=== PATIENT | male | born 1980 | race American Indian/Alaskan Native ===

== ENCOUNTER 2020-08-25 00:09 | Inpatient (IN) | payer SELFPAY ==
--- NOTE | 2020-08-25 00:44 | Event Note ---
ED Screening Note Date of service: 08/25/20 Time: 00:42 ED Screening Note: Patient complains of shortness of breath x2 to 3 weeks History of diabetes, colon cancer-currently on chemo Heart rate noted to be 140 This initial assessment/diagnostic orders/clinical plan/treatment(s) is/are subject to change based on patients health status, clinical progression and re- assessment by fellow clinical providers in the ED. Further treatment and workup at subsequent clinical providers discretion. Patient/guardian urged not to elope from the ED as their condition may be serious if not clinically assessed and managed. Initial orders include: Labs EKG Chest x-ray POC glucose
[2020-08-25] MEDS ORDERED: HYDROmorphone 1 MG/1 ML INJ IV ONE (01:18)
[2020-08-25] MEDS ORDERED: SODIUM CHLORIDE 0.9% 1000 ML 1,000 ML IV ONE (01:18)
--- NOTE | 2020-08-25 01:20 | Emergency Department Report ---
ED Shortness of Breath HPI - General Chief Complaint: Dyspnea/Respdistress Stated Complaint: SOB/FATIGUE Time Seen by Provider: 08/25/20 00:40 Source: patient Mode of arrival: Ambulatory Limitations: No Limitations - History of Present Illness Initial Comments: Patient is a 40-year-old male that presents emergency room with complaints of shortness of breath and fatigue x2 to 3 weeks. Patient states his symptoms are worsening. Patient also complains of dark stool. Patient states he has melena. Patient states he has chronic anemia. Patient states from time to time his blood count will drop. Patient states he is having generalized pain. Patient states he has myalgias. Patient denies chest pain. Patient denies fever and chills. Patient denies recent travel. Patient denies recent international travel. Patient denies exposure to the novel coronavirus. Patient denies sick contacts. Patient denies fever and chills. Patient denies cough. Patient denies coming in contact with anybody with symptoms of the novel coronavirus. -: Sudden, week(s) Severity: severe Pain Scale: 10 Quality: aching Consistency: constant Improves With: rest Worsens With: movement Treatments Prior to Arrival: none - Related Data Home Oxygen Therapy: No Previous Rx's Medication Instructions Recorded Last Taken Type Glimepiride [Amaryl] 1 mg PO QDDIAB #30 tablet 05/04/15 Unknown Rx Pantoprazole [Protonix] 40 mg PO BID #60 tablet 05/04/15 Unknown Rx Sucralfate [Carafate] 1 gm PO Q6HR #60 oral.liqd 05/04/15 Unknown Rx amLODIPine 2.5 mg PO QDAY #30 tablet 05/04/15 Unknown Rx carvediloL [Coreg] 6.25 mg PO BID #30 tablet 05/04/15 Unknown Rx Allergies Allergy/AdvReac Type Severity Reaction Status Date / Time Penicillins Allergy Unknown Verified 03/10/13 06:35 ED Review of Systems ROS: Stated complaint: SOB/FATIGUE Other details as noted in HPI Constitutional: malaise. denies: chills, fever Eyes: denies: eye pain, eye discharge, vision change ENT: denies: ear pain, throat pain Respiratory: shortness of breath. denies: cough, wheezing Cardiovascular: denies: chest pain, palpitations Endocrine: no symptoms reported Gastrointestinal: melena. denies: abdominal pain, nausea, vomiting, diarrhea Genitourinary: denies: urgency, dysuria Musculoskeletal: arthralgia, myalgia. denies: back pain, joint swelling Skin: denies: rash, lesions Neurological: denies: headache, weakness, paresthesias Psychiatric: denies: anxiety, depression Hematological/Lymphatic: denies: easy bleeding, easy bruising ED Past Medical Hx - Past Medical History Previous Medical History?: Yes Hx Hypertension: Yes Hx Congestive Heart Failure: No Hx Diabetes: Yes Hx Asthma: No Hx COPD: No Hx HIV: No Additional medical history: PUD, Colon cancer, Hidradenitis suppurativa - Surgical History Past Surgical History?: Yes Additional Surgical History: Colon resection - Family History Family history: no significant - Social History Smoking Status: Never Smoker Substance Use Type: Marijuana - Medications Home Medications: Home Medications Medication Instructions Recorded Confirmed Last Taken Type Glimepiride [Amaryl] 1 mg PO QDDIAB #30 tablet 05/04/15 Unknown Rx Pantoprazole [Protonix] 40 mg PO BID #60 tablet 05/04/15 Unknown Rx Sucralfate [Carafate] 1 gm PO Q6HR #60 oral.liqd 05/04/15 Unknown Rx amLODIPine 2.5 mg PO QDAY #30 tablet 05/04/15 Unknown Rx carvediloL [Coreg] 6.25 mg PO BID #30 tablet 05/04/15 Unknown Rx ED Physical Exam - General Limitations: No Limitations General appearance: alert, in no apparent distress - Head Head exam: Present: atraumatic, normocephalic - Eye Eye exam: Present: normal appearance - ENT ENT exam: Present: mucous membranes moist - Neck Neck exam: Present: normal inspection - Respiratory Respiratory exam: Present: normal lung sounds bilaterally. Absent: respiratory distress - Cardiovascular Cardiovascular Exam: Present: regular rate, normal rhythm. Absent: systolic murmur, diastolic murmur, rubs, gallop - GI/Abdominal GI/Abdominal exam: Present: soft, normal bowel sounds - Rectal Rectal exam: Present: deferred - Extremities Exam Extremities exam: Present: normal inspection - Back Exam Back exam: Present: normal inspection - Neurological Exam Neurological exam: Present: alert, oriented X3 - Psychiatric Psychiatric exam: Present: normal affect, normal mood - Skin Skin exam: Present: warm, dry, normal color, other (Bilateral axillary cellulitis noted.). Absent: rash ED Course Vital Signs 08/25/20 08/25/20 08/25/20 00:30 01:18 02:00 Temperature 98.1 F Pulse Rate 140 H 106 H Respiratory 18 20 16 Rate Blood Pressure 118/73 138/67 O2 Sat by Pulse 100 98 98 Oximetry 08/25/20 08/25/20 08/25/20 02:16 02:30 02:46 Temperature Pulse Rate 99 H 97 H 92 H Respiratory 19 21 18 Rate Blood Pressure 140/73 140/73 130/72 O2 Sat by Pulse 98 99 99 Oximetry 08/25/20 08/25/20 03:00 03:16 Temperature Pulse Rate 92 H 91 H Respiratory 18 15 Rate Blood Pressure 130/72 119/74 O2 Sat by Pulse 99 99 Oximetry - Reevaluation(s) Reevaluation #1: Patient states his pain is better. Patient's heart rate is better. I discussed all results with patient. I discussed plan of care with patient. Patient agrees with plan of care and admission. Patient to be admitted to the hospitalist service. 08/25/20 03:23 - Consultations Consultation #1: Hospitalist consulted for admission. Hospitalist to admit patient. 08/25/20 03:23 Consultation #2: GI consult placed 08/25/20 03:44 ED Medical Decision Making - Lab Data Result diagrams: 08/25/20 01:07 08/25/20 01:07 - EKG Data -: EKG Interpreted by Me EKG shows normal: sinus rhythm, axis, intervals, QRS complexes, ST-T waves Rate: tachycardia - Radiology Data Radiology results: report reviewed, image reviewed interpreted by me: Chest x-ray: No pneumonia, no pneumothorax, no foreign body, no osseous findings, no acute findings - Medical Decision Making Patient is a 40-year-old male who presents emergency room with complaints of shortness of breath and fatigue and generalized body aches x2 to 3 weeks. Patient symptoms are worsening. Patient also complained of melena. Patient states he has history of anemia. Patient found to be tachycardic at 120 and patient was given normal saline and his heart rate improved. Patient also given early antibiotics. Patient had labs done which were essentially unremarkable except for anemia, elevated platelet count, elevated WBC. Patient source of infection is his axillary cellulitis and suppurative hidradenitis. Patient has a foul-smelling discharge from the axillary region. Patient given Dilaudid for pain he responded well. Patient responded well to treatment. GI consulted. P atient admitted to the hospitalist service for further evaluation and treatment. - Differential Diagnosis Sepsis, Sirs, tachycardia, SLB, fatigue, melena, anemia, cellulitis Critical Care Time: Yes Critical care time in (mins) excluding proc time.: 35 Critical care attestation.: If time is entered above; I have spent that time in minutes in the direct care of this critically ill patient, excluding procedure time. Critical Care Time: 35 minutes ED Disposition Clinical Impression: Hidradenitis suppurativa, Symptomatic anemia, Melena, Tachycardia Elevated WBC count Qualifiers: Leukocytosis type: unspecified Qualified Code(s): D72.829 - Elevated white blood cell count, unspecified Cellulitis of axilla Qualifiers: Laterality: unspecified laterality Qualified Code(s): L03.119 - Cellulitis of unspecified part of limb Anemia Qualifiers: Anemia type: unspecified type Qualified Code(s): D64.9 - Anemia, unspecified Sepsis Qualifiers: Sepsis type: sepsis due to unspecified organism Sepsis acute organ dysfunction status: without acute organ dysfunction Qualified Code(s): A41.9 - Sepsis, unspecified organism Disposition: 09 OP ADMIT IP TO THIS HOSP Is pt being admited?: Yes Does the pt Need Aspirin: No Condition: Critical Time of Disposition: 03:23
[2020-08-25 01:46] LABS: Hematocrit 29.7 % (35.5-45.6); Mean Corpuscular HGB Conc 30 % (32-34); Platelet Count 717 K/mm3 (140-440); Red Blood Count 4.51 M/mm3 (3.65-5.03); Red Cell Distribution Width 18.5 % (13.2-15.2)
[2020-08-25 01:51] LABS: Mean Corpuscular Volume 66 fl (84-94)
[2020-08-25] MEDS ORDERED: CLINDAMYCIN 600 MG/50 mL 600 MG/50 ML BAG IV ONE (01:55)
[2020-08-25 02:06] LABS: BUN/Creatinine Ratio 10; Blood Urea Nitrogen 11 mg/dL (9-20); Calcium 8.2 mg/dL (8.4-10.2); Hemolysis Index 0
[2020-08-25 03:16] LABS: Band Neutrophils # (Manual) 0.2 K/mm3; Total Cells Counted 100
[2020-08-25 03:17] LABS: Hypochromasia 2+
[2020-08-25 03:18] LABS: Platelet Estimate Consistent w Auto
[2020-08-25] MEDS ORDERED: SODIUM CHLORIDE 0.9% 1000 ML IV SOLN IV ONE (03:25)
[2020-08-25] MEDS ORDERED: PANTOPRAZOLE 80 MG in SODIUM CHLORIDE 0.9% 100 ML IV SCH (04:00)
[2020-08-25] MEDS ORDERED: ACETAMINOPHEN 325 MG TAB PO PRN (04:09)
[2020-08-25] MEDS ORDERED: ONDANSETRON 4 MG/2 ML INJ IV PRN (04:09)
[2020-08-25] MEDS ORDERED: MAGNESIUM HYDROXIDE (MOM) ORAL LIQD UDC PO PRN (04:09)
--- NOTE | 2020-08-25 04:22 | History and Physical Report ---
History of Present Illness Date of examination: 08/25/20 Date of admission: 08/25/20 03:44 Chief complaint: Shortness of breath Fatigue History of present illness: 40-year-old male with known history of hypertension, history of diabetes mellitus, colon cancer with colon resection in the past, PUD presenting in the emergency room today complaining of shortness of breath and fatigue which has been ongoing for about 2 to 3 weeks. He has also had some dark stool and indicates that he has had anemia from time to time. Denies any fever or chills, no chest pain or shortness of breath, no fever or chills, no nausea vomiting and no diarrhea. He however has been having generalized body aches and pain. Patient denies any sick contacts and no recent travel. Denies any contact with anyone with COVID-19. Upon arrival in the emergency room he was tachycardic. Evaluation in the emergency room today reveals a leukocytosis of 18., Chest x-ray was unremarkable. Patient is being admitted with sepsis and anemia. Past History Past Medical History: diabetes, hypertension, other (History of colon cancer, peptic ulcer disease) Past Surgical History: Other (Colon resection) Social history: no significant social history Family history: no significant family history Medications and Allergies Allergies Allergy/AdvReac Type Severity Reaction Status Date / Time Penicillins Allergy Unknown Verified 03/10/13 06:35 Home Medications Medication Instructions Recorded Confirmed Last Taken Type Glimepiride [Amaryl] 1 mg PO QDDIAB #30 tablet 05/04/15 Unknown Rx Pantoprazole [Protonix] 40 mg PO BID #60 tablet 05/04/15 Unknown Rx Sucralfate [Carafate] 1 gm PO Q6HR #60 oral.liqd 05/04/15 Unknown Rx amLODIPine 2.5 mg PO QDAY #30 tablet 05/04/15 Unknown Rx carvediloL [Coreg] 6.25 mg PO BID #30 tablet 05/04/15 Unknown Rx Active Meds: Active Medications Acetaminophen (Acetaminophen 325 Mg Tab) 650 mg PO Q4H PRN PRN Reason: Pain MILD(1-3)/Fever >100.5/SCOTT Amlodipine Besylate (Amlodipine 5 Mg Tab) 2.5 mg PO QDAY ASTRID Carvedilol (Carvedilol 6.25 Mg Tab) 6.25 mg PO BID@0800,1700 [facility] Pantoprazole Sodium 80 mg/ (Sodium Chloride) 100 mls @ 10 mls/hr IV DIRECT ASTRID Sodium Chloride (Nacl 0.9% 1000 Ml) 1,000 mls @ 125 mls/hr IV DIRECT ASTRID Clindamycin HCl (Cleocin 600 Mg/50 Ml) 600 mg in 50 mls @ 100 mls/hr IV Q8H ASTRID; Protocol Magnesium Hydroxide (Magnesium Hydroxide (Mom) Oral Liqd Udc) 30 ml PO Q4H PRN PRN Reason: Constipation Morphine Sulfate (Morphine 2 Mg/1 Ml Inj) 2 mg IV Q4H PRN PRN Reason: Pain, Moderate (4-6) Ondansetron HCl (Ondansetron 4 Mg/2 Ml Inj) 4 mg IV Q8H PRN PRN Reason: Nausea And Vomiting Sodium Chloride (Sodium Chloride 0.9% 10 Ml Flush Syringe) 10 ml IV BID ASTRID Sodium Chloride (Sodium Chloride 0.9% 10 Ml Flush Syringe) 10 ml IV PRN PRN PRN Reason: LINE FLUSH Sucralfate (Sucralfate 1 Gm/10 Ml Oral Liqd) 1 gm PO Q6HR [facility] Review of Systems Constitutional: fatigue, weakness, no fever, no chills Ears, nose, mouth and throat: no nasal congestion, no sore throat Cardiovascular: no chest pain, no palpitations Respiratory: no cough, no shortness of breath Gastrointestinal: melena, no abdominal pain, no nausea, no vomiting, no diarrhea Genitourinary Male: no dysuria, no hematuria, no nocturia Musculoskeletal: no neck pain, no low back pain Integumentary: no rash, no pruritis Neurological: no headaches, no confusion Psychiatric: no anxiety, no depression Exam - Constitutional Vitals: Temp Pulse Resp BP Pulse Ox 98.1 F 91 H 15 119/74 99 08/25/20 00:30 08/25/20 03:16 08/25/20 03:16 08/25/20 03:16 08/25/20 03:16 General appearance: Present: no acute distress, well-nourished - EENT Eyes: Present: PERRL, EOM intact. Absent: scleral icterus ENT: hearing intact, clear oral mucosa, dentition normal - Neck Neck: Present: supple, normal ROM - Respiratory Respiratory effort: normal Respiratory: bilateral: CTA - Cardiovascular Rhythm: regular Heart Sounds: Present: S1 & S2. Absent: gallop, systolic murmur, diastolic murmur, rub, click - Extremities Extremities: no ischemia, pulses intact, pulses symmetrical, No edema, normal temperature, normal color, Full ROM Peripheral Pulses: within normal limits - Abdominal General gastrointestinal: Present: soft, non-tender, non-distended, normal bowel sounds. Absent: mass - Integumentary Integumentary: Present: clear, warm, dry, pale - Musculoskeletal Musculoskeletal: strength equal bilaterally - Psychiatric Psychiatric: appropriate mood/affect, intact judgment & insight, memory intact, cooperative - Neurologic Neurologic: CNII-XII intact, no focal deficits, moves all extremities - Additional findings Additional findings: Open wounds in both axilla. HEART Score - HEART Score Troponin: Troponin T < 0.010 ng/mL (0.00-0.029) 08/25/20 01:07 Results - Labs CBC & Chem 7: 08/25/20 01:07 08/25/20 01:07 Labs: Abnormal lab results 08/25/20 08/25/20 Range/Units 01:07 01:07 WBC 18.0 H (4.5-11.0) K/mm3 Hgb 9.0 L (11.8-15.2) gm/dl Hct 29.7 L (35.5-45.6) % MCV 66 L (84-94) fl MCH 20 L (28-32) pg MCHC 30 L (32-34) % RDW 18.5 H (13.2-15.2) % Plt Count 717 H (140-440) K/mm3 Seg Neuts % (Manual) 89.0 H (40.0-70.0) % Lymphocytes % (Manual) 5.0 L (13.4-35.0) % Seg Neutrophils # Man 16.0 H (1.8-7.7) K/mm3 Lymphocytes # (Manual) 0.9 L (1.2-5.4) K/mm3 Monocytes # (Manual) 0.9 H (0.0-0.8) K/mm3 Sodium 127 L (137-145) mmol/L Chloride 90.3 L (98-107) mmol/L Glucose 155 H (75-100) mg/dL Calcium 8.2 L (8.4-10.2) mg/dL Assessment and Plan - Patient Problems (1) Cellulitis of axilla Current Visit: Yes Status: Acute Qualifiers: Laterality: unspecified laterality Qualified Code(s): L03.119 - Cellulitis of unspecified part of limb Plan to address problem: Patient placed on empiric IV antibiotics. We await culture results. (2) Sepsis Current Visit: Yes Status: Acute Qualifiers: Sepsis type: sepsis due to unspecified organism Sepsis acute organ dysfunction status: without acute organ dysfunction Qualified Code(s): A41.9 - Sepsis, unspecified organism Plan to address problem: We will continue on empiric IV antibiotics and IV fluid. (3) Symptomatic anemia Current Visit: Yes Status: Acute Plan to address problem: Probably chronic. Patient will transfuse with packed red blood cells as needed. (4) DVT prophylaxis Current Visit: Yes Status: Acute Plan to address problem: Patient placed on sequential compression device. (5) Full code status Current Visit: Yes Status: Acute Plan to address problem: Patient is full code.
[2020-08-25] MEDS: MORPHINE 2 MG/1 ML INJ IV PRN ×3 (05:30→21:27)
[2020-08-25] MEDS: SODIUM CHLORIDE 0.9% 1000 ML 1,000 ML IV SCH ×3 (05:31→20:24)
[2020-08-25] MEDS: SUCRALFATE 1 GM/10 ML ORAL LIQD PO SCH ×3 (07:59→18:56)
--- NOTE | 2020-08-25 10:06 | Gastroenterology Consultation ---
History of Present Illness - Reason for Consult Consult date: 08/25/20 dark stools, anemia Requesting physician: VINCENT STILL III - History of Present Illness The patient is a 40 yo aam who presents with progressive weakness/fatigue for the past 2-3 weeks. Patient reports he gets his medical care at [facility]. Reports being diagnosed with stage III colon cancer last year (colonoscopy prior to diagnosis for weight loss per pt; all history obtained from pt), s/p partial colon resection and chemotherapy last year. He has had hydradenitis suppuritiva involving bilateral axillaries under arm, groin and buttocks. GI consulted for anemia/possible melena. States he has had dark brown stools but no overt bleeding (no black stools, hematochezia, etc). Denies abd pain. occasional issues with constipation. reports significant drainage from buttocks hydranitis. Past History Past Medical History: diabetes, hypertension, other (History of colon cancer, peptic ulcer disease) Past Surgical History: Other (Colon resection) Social history: no significant social history Family history: no significant family history Medications and Allergies Allergies Allergy/AdvReac Type Severity Reaction Status Date / Time Penicillins Allergy Unknown Verified 03/10/13 06:35 Home Medications Medication Instructions Recorded Confirmed Last Taken Type Glimepiride [Amaryl] 1 mg PO QDDIAB #30 tablet 05/04/15 Unknown Rx Pantoprazole [Protonix] 40 mg PO BID #60 tablet 05/04/15 Unknown Rx Sucralfate [Carafate] 1 gm PO Q6HR #60 oral.liqd 05/04/15 Unknown Rx amLODIPine 2.5 mg PO QDAY #30 tablet 05/04/15 Unknown Rx carvediloL [Coreg] 6.25 mg PO BID #30 tablet 05/04/15 Unknown Rx Active Meds: Active Medications Acetaminophen (Acetaminophen 325 Mg Tab) 650 mg PO Q4H PRN PRN Reason: Pain MILD(1-3)/Fever >100.5/SCOTT Amlodipine Besylate (Amlodipine 5 Mg Tab) 2.5 mg PO QDAY ASTRID Carvedilol (Carvedilol 6.25 Mg Tab) 6.25 mg PO BID@0800,1700 [facility] Pantoprazole Sodium 80 mg/ (Sodium Chloride) 100 mls @ 10 mls/hr IV DIRECT ASTRID Last Admin: 08/25/20 05:31 Dose: 8 mg/hr, 10 mls/hr Documented by: Sodium Chloride (Nacl 0.9% 1000 Ml) 1,000 mls @ 125 mls/hr IV DIRECT ASTRID Last Admin: 08/25/20 05:31 Dose: 125 mls/hr Documented by: Clindamycin HCl (Cleocin 600 Mg/50 Ml) 600 mg in 50 mls @ 100 mls/hr IV Q8H ASTRID; Protocol Magnesium Hydroxide (Magnesium Hydroxide (Mom) Oral Liqd Udc) 30 ml PO Q4H PRN PRN Reason: Constipation Morphine Sulfate (Morphine 2 Mg/1 Ml Inj) 2 mg IV Q4H PRN PRN Reason: Pain, Moderate (4-6) Last Admin: 08/25/20 05:30 Dose: 2 mg Documented by: Ondansetron HCl (Ondansetron 4 Mg/2 Ml Inj) 4 mg IV Q8H PRN PRN Reason: Nausea And Vomiting Sodium Chloride (Sodium Chloride 0.9% 10 Ml Flush Syringe) 10 ml IV BID ASTRID Sodium Chloride (Sodium Chloride 0.9% 10 Ml Flush Syringe) 10 ml IV PRN PRN PRN Reason: LINE FLUSH Sucralfate (Sucralfate 1 Gm/10 Ml Oral Liqd) 1 gm PO Q6HR ASTRID Last Admin: 08/25/20 07:59 Dose: Not Given Documented by: Reviewed/updated patient's home and current medications Review of Systems - Review of Systems All systems: negative (per HPI) Exam - Constitutional Vital Signs: Temp Pulse Resp BP Pulse Ox 98.4 F 87 16 119/73 100 08/25/20 08:44 08/25/20 08:44 08/25/20 08:44 08/25/20 08:44 08/25/20 08:44 General appearance: no acute distress - Respiratory Respiratory effort: normal Respiratory: bilateral: CTA - Cardiovascular Rhythm: regular Heart Sounds: Present: S1 & S2 - Gastrointestinal General gastrointestinal: Present: soft, non-tender, non-distended Rectal Exam: other (large buttocks swelling with drainage, brown stool) - Integumentary Integumentary: Present: clear, warm - Neurologic Neurological: alert and oriented x3 - Psychiatric Psychiatric: appropriate mood/affect - Labs CBC & Chem 7: 08/25/20 01:07 08/25/20 01:07 Lab Results: Laboratory Results - last 24 hr 08/25/20 08/25/20 08/25/20 01:07 01:07 01:07 WBC 18.0 H RBC 4.51 Hgb 9.0 L Hct 29.7 L MCV 66 L MCH 20 L MCHC 30 L RDW 18.5 H Plt Count 717 H Add Manual Diff Complete Total Counted 100 Seg Neuts % (Manual) 89.0 H Band Neutrophils % 1.0 Lymphocytes % (Manual) 5.0 L Monocytes % (Manual) 5.0 Nucleated RBC % Not Reportable Seg Neutrophils # Man 16.0 H Band Neutrophils # 0.2 Lymphocytes # (Manual) 0.9 L Abs React Lymphs (Man) 0.0 Monocytes # (Manual) 0.9 H Eosinophils # (Manual) 0.0 Basophils # (Manual) 0.0 Metamyelocytes # 0.0 Myelocytes # 0.0 Promyelocytes # 0.0 Blast Cells # 0.0 WBC Morphology Not Reportable Hypersegmented Neuts Not Reportable Hyposegmented Neuts Not Reportable Hypogranular Neuts Not Reportable Smudge Cells Not Reportable Toxic Granulation Not Reportable Toxic Vacuolation Not Reportable Dohle Bodies Not Reportable Pelger-Huet Anomaly Not Reportable Janet Rods Not Reportable Platelet Estimate Consistent w auto Clumped Platelets Not Reportable Plt Clumps, EDTA Not Reportable Large Platelets Not Reportable Giant Platelets Not Reportable Platelet Satelliting Not Reportable Plt Morphology Comment Not Reportable RBC Morphology Not Reportable Dimorphic RBCs Not Reportable Polychromasia Not Reportable Hypochromasia 2+ Poikilocytosis Not Reportable Anisocytosis Not Reportable Microcytosis 1+ Macrocytosis Not Reportable Spherocytes Not Reportable Pappenheimer Bodies Not Reportable Sickle Cells Not Reportable Target Cells Not Reportable Tear Drop Cells Not Reportable Ovalocytes Not Reportable Helmet Cells Not Reportable Perez-[place] Bodies Not Reportable Hilliard Rings Not Reportable Maik Cells Not Reportable Bite Cells Not Reportable Crenated Cell Not Reportable Elliptocytes Not Reportable Acanthocytes (Spur) Not Reportable Rouleaux Not Reportable Hemoglobin C Crystals Not Reportable Schistocytes Not Reportable Malaria parasites Not Reportable Rishi Bodies Not Reportable Hem Pathologist Commnt No Sodium 127 L Potassium 4.7 Chloride 90.3 L Carbon Dioxide 28 Anion Gap 13 BUN 11 Creatinine 1.1 Estimated GFR > 60 BUN/Creatinine Ratio 10 Glucose 155 H Lactic Acid Calcium 8.2 L Troponin T < 0.010 NT-Pro-B Natriuret Pep 218.3 08/25/20 01:38 WBC RBC Hgb Hct MCV MCH MCHC RDW Plt Count Add Manual Diff Total Counted Seg Neuts % (Manual) Band Neutrophils % Lymphocytes % (Manual) Monocytes % (Manual) Nucleated RBC % Seg Neutrophils # Man Band Neutrophils # Lymphocytes # (Manual) Abs React Lymphs (Man) Monocytes # (Manual) Eosinophils # (Manual) Basophils # (Manual) Metamyelocytes # Myelocytes # Promyelocytes # Blast Cells # WBC Morphology Hypersegmented Neuts Hyposegmented Neuts Hypogranular Neuts Smudge Cells Toxic Granulation Toxic Vacuolation Dohle Bodies Pelger-Huet Anomaly Janet Rods Platelet Estimate Clumped Platelets Plt Clumps, EDTA Large Platelets Giant Platelets Platelet Satelliting Plt Morphology Comment RBC Morphology Dimorphic RBCs Polychromasia Hypochromasia Poikilocytosis Anisocytosis Microcytosis Macrocytosis Spherocytes Pappenheimer Bodies Sickle Cells Target Cells Tear Drop Cells Ovalocytes Helmet Cells Perez-[place] Bodies Hilliard Rings [place] Cells Bite Cells Crenated Cell Elliptocytes Acanthocytes (Spur) Rouleaux Hemoglobin C Crystals Schistocytes Malaria parasites Rishi Bodies Hem Pathologist Commnt Sodium Potassium Chloride Carbon Dioxide Anion Gap BUN Creatinine Estimated GFR BUN/Creatinine Ratio Glucose Lactic Acid 1.90 Calcium Troponin T NT-Pro-B Natriuret Pep Assessment and Plan 1. Chronic anemia - no overt gi bleeding, brown stool on rectal exam. reports h/o colon cancer last year s/p partial colon resection and chemotherapy at [facility]. no plans for endoscopy at present time unless signs of overt bleeding. can switch to PPI BID dosing and monitor labs. 2. Hidranitis suppurrativa - further management per primary; appears to have significant buttocks involvement with continuos drainage which is blood tinged. 3. history of colon cancer - will need f/u with primary GI as outpatient at [facility] for surveillance -consider ct scan of abd/pelvis
--- NOTE | 2020-08-25 11:35 | Progress Note ---
Assessment and Plan Assessment and plan: #Sepsis multiple hidradenitis suppurativa with drainage involving the axillary and buttock/groin regions On empirical clindamycin. Culturelle Awaiting blood culture. Send wound culture results Wound care consulted ID evaluation Continue IV hydration #Shortness of breath on admission Chest x-ray showed no clear infiltrates. Awaiting official reading.? COVID-19 test #Chronic anemia Hemoglobin stable Trend hemoglobin for now GI evaluation #History of colon cancer Status post colon resection and chemo therapy Needs to follow-up with GI doctor at [facility] evaluation #DVT prophylaxis-SCDs/encourage ambulation for now History Interval history: Patient seen and examined at bedside this morning On IV antibiotics for suppurative hidradenitis GI consulted for possible colonoscopy Hospitalist Physical - Physical exam Narrative exam: VITAL SIGNS: Reviewed. GENERAL: Awake HEAD: No signs of head trauma. EYES: Pupils are equal. Extraocular motions intact. MOUTH: Oropharynx is normal. NECK: No adenopathy, no JVD. CHEST: Chest with diminished breath sounds bilaterally. No wheezes, rales, or rhonchi. CARDIAC: normal S1 and S2, without murmurs, gallops, or rubs. ABDOMEN: Soft, non tender and non distended. No rebound or guarding, and no masses palpated. Bowel Sounds normal. MUSCULOSKELETAL: Multiple hidradenitis suppurativa with discharge in bilateral a xilla Genitourinary: Hidradenitis of the groin area NEUROLOGIC EXAM: Alert and oriented x3. No focal neurologic deficits SKIN: No obvious lesions - Constitutional Vitals: Temp Pulse Resp BP Pulse Ox 98.4 F 87 16 119/73 100 08/25/20 08:44 08/25/20 08:44 08/25/20 08:44 08/25/20 08:44 08/25/20 08:44 HEART Score - HEART Score Troponin: Troponin T < 0.010 ng/mL (0.00-0.029) 08/25/20 01:07 Results - Labs CBC & Chem 7: 08/25/20 01:07 08/25/20 01:07 Labs: Laboratory Last Values WBC 18.0 K/mm3 (4.5-11.0) H 08/25/20 01:07 RBC 4.51 M/mm3 (3.65-5.03) 08/25/20 01:07 Hgb 9.0 gm/dl (11.8-15.2) L 08/25/20 01:07 Hct 29.7 % (35.5-45.6) L 08/25/20 01:07 MCV 66 fl (84-94) L 08/25/20 01:07 MCH 20 pg (28-32) L 08/25/20 01:07 MCHC 30 % (32-34) L 08/25/20 01:07 RDW 18.5 % (13.2-15.2) H 08/25/20 01:07 Plt Count 717 K/mm3 (140-440) H 08/25/20 01:07 Add Manual Diff Complete 08/25/20 01:07 Total Counted 100 08/25/20 01:07 Seg Neuts % (Manual) 89.0 % (40.0-70.0) H 08/25/20 01:07 Band Neutrophils % 1.0 % 08/25/20 01:07 Lymphocytes % (Manual) 5.0 % (13.4-35.0) L 08/25/20 01:07 Monocytes % (Manual) 5.0 % (0.0-7.3) 08/25/20 01:07 Nucleated RBC % Not Reportable 08/25/20 01:07 Seg Neutrophils # Man 16.0 K/mm3 (1.8-7.7) H 08/25/20 01:07 Band Neutrophils # 0.2 K/mm3 08/25/20 01:07 Lymphocytes # (Manual) 0.9 K/mm3 (1.2-5.4) L 08/25/20 01:07 Abs React Lymphs (Man) 0.0 K/mm3 08/25/20 01:07 Monocytes # (Manual) 0.9 K/mm3 (0.0-0.8) H 08/25/20 01:07 Eosinophils # (Manual) 0.0 K/mm3 (0.0-0.4) 08/25/20 01:07 Basophils # (Manual) 0.0 K/mm3 (0.0-0.1) 08/25/20 01:07 Metamyelocytes # 0.0 K/mm3 08/25/20 01:07 Myelocytes # 0.0 K/mm3 08/25/20 01:07 Promyelocytes # 0.0 K/mm3 08/25/20 01:07 Blast Cells # 0.0 K/mm3 08/25/20 01:07 WBC Morphology Not Reportable 08/25/20 01:07 Hypersegmented Neuts Not Reportable 08/25/20 01:07 Hyposegmented Neuts Not Reportable 08/25/20 01:07 Hypogranular Neuts Not Reportable 08/25/20 01:07 Smudge Cells Not Reportable 08/25/20 01:07 Toxic Granulation Not Reportable 08/25/20 01:07 Toxic Vacuolation Not Reportable 08/25/20 01:07 Dohle Bodies Not Reportable 08/25/20 01:07 Pelger-Huet Anomaly Not Reportable 08/25/20 01:07 Janet Rods Not Reportable 08/25/20 01:07 Platelet Estimate Consistent w auto 08/25/20 01:07 Clumped Platelets Not Reportable 08/25/20 01:07 Plt Clumps, EDTA Not Reportable 08/25/20 01:07 Large Platelets Not Reportable 08/25/20 01:07 Giant Platelets Not Reportable 08/25/20 01:07 Platelet Satelliting Not Reportable 08/25/20 01:07 Plt Morphology Comment Not Reportable 08/25/20 01:07 RBC Morphology Not Reportable 08/25/20 01:07 Dimorphic RBCs Not Reportable 08/25/20 01:07 Polychromasia Not Reportable 08/25/20 01:07 Hypochromasia 2+ 08/25/20 01:07 Poikilocytosis Not Reportable 08/25/20 01:07 Anisocytosis Not Reportable 08/25/20 01:07 Microcytosis 1+ 08/25/20 01:07 Macrocytosis Not Reportable 08/25/20 01:07 Spherocytes Not Reportable 08/25/20 01:07 Pappenheimer Bodies Not Reportable 08/25/20 01:07 Sickle Cells Not Reportable 08/25/20 01:07 Target Cells Not Reportable 08/25/20 01:07 Tear Drop Cells Not Reportable 08/25/20 01:07 Ovalocytes Not Reportable 08/25/20 01:07 Helmet Cells Not Reportable 08/25/20 01:07 Perez-[place] Bodies Not Reportable 08/25/20 01:07 [place] Rings Not Reportable 08/25/20 01:07 [place] Cells Not Reportable 08/25/20 01:07 Bite Cells Not Reportable 08/25/20 01:07 Crenated Cell Not Reportable 08/25/20 01:07 Elliptocytes Not Reportable 08/25/20 01:07 Acanthocytes (Spur) Not Reportable 08/25/20 01:07 Rouleaux Not Reportable 08/25/20 01:07 Hemoglobin C Crystals Not Reportable 08/25/20 01:07 Schistocytes Not Reportable 08/25/20 01:07 Malaria parasites Not Reportable 08/25/20 01:07 Rishi Bodies Not Reportable 08/25/20 01:07 Hem Pathologist Commnt No 08/25/20 01:07 Sodium 127 mmol/L (137-145) L 08/25/20 01:07 Potassium 4.7 mmol/L (3.6-5.0) 08/25/20 01:07 Chloride 90.3 mmol/L (98-107) L 08/25/20 01:07 Carbon Dioxide 28 mmol/L (22-30) 08/25/20 01:07 Anion Gap 13 mmol/L 08/25/20 01:07 BUN 11 mg/dL (9-20) 08/25/20 01:07 Creatinine 1.1 mg/dL (0.8-1.3) 08/25/20 01:07 Estimated GFR > 60 ml/min 08/25/20 01:07 BUN/Creatinine Ratio 10 % 08/25/20 01:07 Glucose 155 mg/dL (75-100) H 08/25/20 01:07 Lactic Acid 1.90 mmol/L (0.7-2.0) 08/25/20 01:38 Calcium 8.2 mg/dL (8.4-10.2) L 08/25/20 01:07 Troponin T < 0.010 ng/mL (0.00-0.029) 08/25/20 01:07 NT-Pro-B Natriuret Pep 218.3 pg/mL (0-450) 08/25/20 01:07 Active Medications - Current Medications Current Medications: Generic Name Dose Route Start Last Admin Trade Name Freq PRN Reason Stop Dose Admin Acetaminophen 650 mg 08/25/20 04:09 Acetaminophen 325 Mg Tab PO Q4H PRN Pain MILD(1-3)/Fever >100.5/SCOTT Amlodipine Besylate 2.5 mg 08/25/20 10:00 Amlodipine 5 Mg Tab PO QDAY [facility] Carvedilol 6.25 mg 08/25/20 08:00 Carvedilol 6.25 Mg Tab PO BID@0800,1700 [facility] Sodium Chloride 1,000 mls @ 125 mls/hr 08/25/20 04:15 08/25/20 05:31 Nacl 0.9% 1000 Ml IV 125 mls/hr DIRECT [facility] Administration Clindamycin HCl 600 mg in 50 mls @ 100 mls/hr 08/25/20 10:00 Cleocin 600 Mg/50 Ml IV Q8H [facility] Protocol Lactobacillus Rhamnosus 1 each 08/25/20 22:00 Lactobacillus Rhamnosus Gg 1 Each Cap PO BID [facility] Magnesium Hydroxide 30 ml 08/25/20 04:09 Magnesium Hydroxide (Mom) Oral Liqd Udc PO Q4H PRN Constipation Morphine Sulfate 2 mg 08/25/20 04:09 08/25/20 05:30 Morphine 2 Mg/1 Ml Inj IV 2 mg Q4H PRN Administration Pain, Moderate (4-6) Ondansetron HCl 4 mg 08/25/20 04:09 Ondansetron 4 Mg/2 Ml Inj IV Q8H PRN Nausea And Vomiting Pantoprazole Sodium 40 mg 08/25/20 16:30 Pantoprazole 40 Mg Tab PO BIDAC [facility] Sodium Chloride 10 ml 08/25/20 10:00 Sodium Chloride 0.9% 10 Ml Flush Syringe IV BID [facility] Sodium Chloride 10 ml 08/25/20 04:09 Sodium Chloride 0.9% 10 Ml Flush Syringe IV PRN PRN LINE FLUSH Sucralfate 1 gm 08/25/20 06:00 08/25/20 07:59 Sucralfate 1 Gm/10 Ml Oral Liqd PO Not Given Q6HR [facility]
[2020-08-25] MEDS: amLODIPine 5 MG TAB PO SCH (13:59)
[2020-08-25] MEDS: CLINDAMYCIN 600 MG/50 mL 600 MG/50 ML BAG IV SCH ×2 (14:01→19:00)
--- NOTE | 2020-08-25 14:04 | Cat Scan Report ---
CT CHEST WITHOUT CONTRAST INDICATION / CLINICAL INFORMATION: Pneumonia. TECHNIQUE: Axial CT images were obtained through the chest without contrast. Sagittal and coronal reformatted im ages. All CT scans at this location are performed using CT dose reduction for ALARA by means of autom ated exposure control. COMPARISON: None available. FINDINGS: HEART: No significant abnormality. THORACIC AORTA: No significant abnormality. MEDIASTINUM and TROY: No significant abnormality. Right [id number] terminates in the superior righ t atrium. LUNGS: No acute air space or interstitial disease. No suspicious pulmonary lesion. PLEURA: No significant pleural effusion. No pneumothorax. SKELETAL SYSTEM: No significant abnormality. IMPRESSION: No significant abnormality. No evidence for pneumonia. CT ABDOMEN AND PELVIS WITHOUT CONTRAST HISTORY: History of colon cancer COMPARISON: CT abdomen pelvis with contrast 07/29/2018 TECHNIQUE: Axial CT images were obtained through the abdomen and pelvis without IV contrast. Sagittal and coronal reformatted images. All CT scans at this location are performed using CT dose reduction for ALARA by means of automated exposure control. FINDINGS: CT ABDOMEN: Liver: The liver remains normal size and contour. Ill-defined decreased attenuation is identified in the liver parenchyma surrounding the gallbladder fossa. There is also an ill-defined 1.6 cm hypodensi ty high in the right hepatic lobe on axial image 40, series 2. These findings are new since the brigette rison exam. Biliary: Large peripherally calcified gall stone in the fundus of the gallbladder measures 2.4 cm. Mi ld diffuse gallbladder wall thickening is suspected. No surrounding inflammation. The common bile do t appears normal caliber. Spleen: No significant abnormality. Unenlarged. Pancreas: No significant abnormality. Adrenals: No significant abnormality. Kidneys: No significant abnormality. Lymphatics: No lymphadenopathy. Vasculature: No significant abnormality. Bowel/Peritoneum: No significant abnormality. No free air. No free fluid. Surgical suture line in the distal sigmoid colon is noted without evidence of local recurrence. Normal appendix. CT PELVIS: : The bladder, distal ureters and prostate gland are unremarkable. Osseous Structures: Stable mild thoracolumbar spondylosis. No suspicious bony lesion. Additional Findings: Nonspecific skin thickening over the medial buttocks is again seen. There is tra ce gas in these areas which may represent small fistulous tracts. No discrete abscess is seen. IMPRESSION: The liver has an abnormal appearance on today's examination particularly surrounding the gallbladder fossa. There is also an ill-defined 1.6 cm right hepatic lobe lesion. These appear to be new since th e previous CT with contrast. Although this does not have the typical appearance of metastatic disease cannot be excluded. Recommend further evaluation of the liver with CT or MRI with IV contrast. Cholelithiasis. Soft tissue findings in the medial buttocks as described suspicious for small fistulous tracts. Signer Name: Diogenes Massey Jr, MD Signed: 08/25/2020 2:00 PM Workstation Name: [id number]
[2020-08-25] MEDS: carvediloL 6.25 MG TAB PO SCH ×2 (14:05→18:56)
--- NOTE | 2020-08-25 14:53 | Consultation ---
History of Present Illness Consult date: 08/25/20 Chief complaint: Hidradenitis - History of present illness History of present illness: 40 yo diabetic male with bilateral axillary, groin and right buttock hidradenitis. Past History Past Medical History: diabetes, hypertension, other (History of colon cancer, peptic ulcer disease) Past Surgical History: Other (Colon resection) Social history: no significant social history Family history: no significant family history Medications and Allergies Allergies Allergy/AdvReac Type Severity Reaction Status Date / Time Penicillins Allergy Unknown Verified 03/10/13 06:35 Home Medications Medication Instructions Recorded Confirmed Last Taken Type Glimepiride [Amaryl] 1 mg PO QDDIAB #30 tablet 05/04/15 Unknown Rx Pantoprazole [Protonix] 40 mg PO BID #60 tablet 05/04/15 Unknown Rx Sucralfate [Carafate] 1 gm PO Q6HR #60 oral.liqd 05/04/15 Unknown Rx amLODIPine 2.5 mg PO QDAY #30 tablet 05/04/15 Unknown Rx carvediloL [Coreg] 6.25 mg PO BID #30 tablet 05/04/15 Unknown Rx Active Meds: Active Medications Acetaminophen (Acetaminophen 325 Mg Tab) 650 mg PO Q4H PRN PRN Reason: Pain MILD(1-3)/Fever >100.5/SCOTT Amlodipine Besylate (Amlodipine 5 Mg Tab) 2.5 mg PO QDAY [facility] Last Admin: 08/25/20 13:59 Dose: 2.5 mg Documented by: Carvedilol (Carvedilol 6.25 Mg Tab) 6.25 mg PO BID@0800,1700 [facility] Last Admin: 08/25/20 14:05 Dose: 6.25 mg Documented by: Sodium Chloride (Nacl 0.9% 1000 Ml) 1,000 mls @ 125 mls/hr IV DIRECT [facility] Last Admin: 08/25/20 13:56 Dose: 125 mls/hr Documented by: Clindamycin HCl (Cleocin 600 Mg/50 Ml) 600 mg in 50 mls @ 100 mls/hr IV Q8H [facility]; Protocol Last Admin: 08/25/20 14:01 Dose: 100 mls/hr Documented by: Lactobacillus Rhamnosus (Lactobacillus Rhamnosus Gg 1 Each Cap) 1 each PO BID [facility] Magnesium Hydroxide (Magnesium Hydroxide (Mom) Oral Liqd Udc) 30 ml PO Q4H PRN PRN Reason: Constipation Morphine Sulfate (Morphine 2 Mg/1 Ml Inj) 2 mg IV Q4H PRN PRN Reason: Pain, Moderate (4-6) Last Admin: 08/25/20 05:30 Dose: 2 mg Documented by: Ondansetron HCl (Ondansetron 4 Mg/2 Ml Inj) 4 mg IV Q8H PRN PRN Reason: Nausea And Vomiting Pantoprazole Sodium (Pantoprazole 40 Mg Tab) 40 mg PO BIDAC [facility] Sodium Chloride (Sodium Chloride 0.9% 10 Ml Flush Syringe) 10 ml IV BID [facility] Last Admin: 08/25/20 14:05 Dose: 10 ml Documented by: Sodium Chloride (Sodium Chloride 0.9% 10 Ml Flush Syringe) 10 ml IV PRN PRN PRN Reason: LINE FLUSH Sucralfate (Sucralfate 1 Gm/10 Ml Oral Liqd) 1 gm PO Q6HR [facility] Last Admin: 08/25/20 13:58 Dose: 1 gm Documented by: Review of Systems All systems: negative (none) Exam Vital Signs Temp Pulse Resp BP Pulse Ox 98.1 F 140 H 18 118/73 100 08/25/20 00:30 08/25/20 00:30 08/25/20 00:30 08/25/20 00:30 08/25/20 00:30 - General physical appearance Positive: well developed, well nourished, no distress - Eyes Positive: PERRL, normal occular movement - ENT Positive: normal pinna, normal nares, normal mucosa, no hearing loss, no congestion - Neck Positive: no masses, no bruits, trachea midline, no venous distension - Respiratory Positive: normal expansion, normal respiratory effort, clear to auscultation - Cardiovascular Rhythm: regular Heart Sounds: Present: S1 & S2. Absent: rub, click - Extremities Extremities: no ischemia, pulses symmetrical, No edema - Breasts Breasts: normal, no mass, no skin changes - Abdomen Abdomen: Present: soft, bowel sounds normal. Absent: tender, distended Hernia: none - Genitourinary Male Genitourinary: normal Female Genitourinary: normal - Integumentary no rash, no growths, no abnormal pigmentation, other (See Wound Care nursing notes for descriptions and photos of hidradenitis.) - Neurologic Neurologic: alert and oriented to time, place and person, motor strength and sensation are grossly intact - Musculoskeletal normal gait, normal posture - Psychiatric Psychiatric: appropriate mood/affect, intact judgment & insight Results - Labs 08/25/20 01:07 08/25/20 01:07 Abnormal lab results 08/25/20 08/25/20 Range/Units 01:07 01:07 WBC 18.0 H (4.5-11.0) K/mm3 Hgb 9.0 L (11.8-15.2) gm/dl Hct 29.7 L (35.5-45.6) % MCV 66 L (84-94) fl MCH 20 L (28-32) pg MCHC 30 L (32-34) % RDW 18.5 H (13.2-15.2) % Plt Count 717 H (140-440) K/mm3 Seg Neuts % (Manual) 89.0 H (40.0-70.0) % Lymphocytes % (Manual) 5.0 L (13.4-35.0) % Seg Neutrophils # Man 16.0 H (1.8-7.7) K/mm3 Lymphocytes # (Manual) 0.9 L (1.2-5.4) K/mm3 Monocytes # (Manual) 0.9 H (0.0-0.8) K/mm3 Sodium 127 L (137-145) mmol/L Chloride 90.3 L (98-107) mmol/L Glucose 155 H (75-100) mg/dL Calcium 8.2 L (8.4-10.2) mg/dL Diabetes panel 08/25/20 Range/Units 01:07 Sodium 127 L (137-145) mmol/L Potassium 4.7 (3.6-5.0) mmol/L Chloride 90.3 L (98-107) mmol/L Carbon Dioxide 28 (22-30) mmol/L BUN 11 (9-20) mg/dL Creatinine 1.1 (0.8-1.3) mg/dL Glucose 155 H (75-100) mg/dL Calcium 8.2 L (8.4-10.2) mg/dL Calcium panel 08/25/20 Range/Units 01:07 Calcium 8.2 L (8.4-10.2) mg/dL Pituitary panel 08/25/20 Range/Units 01:07 Sodium 127 L (137-145) mmol/L Potassium 4.7 (3.6-5.0) mmol/L Chloride 90.3 L (98-107) mmol/L Carbon Dioxide 28 (22-30) mmol/L BUN 11 (9-20) mg/dL Creatinine 1.1 (0.8-1.3) mg/dL Glucose 155 H (75-100) mg/dL Calcium 8.2 L (8.4-10.2) mg/dL Adrenal panel 08/25/20 Range/Units 01:07 Sodium 127 L (137-145) mmol/L Potassium 4.7 (3.6-5.0) mmol/L Chloride 90.3 L (98-107) mmol/L Carbon Dioxide 28 (22-30) mmol/L BUN 11 (9-20) mg/dL Creatinine 1.1 (0.8-1.3) mg/dL Glucose 155 H (75-100) mg/dL Calcium 8.2 L (8.4-10.2) mg/dL Assessment and Plan - Patient Problems (1) Hidradenitis suppurativa Current Visit: Yes Status: Acute Plan to address problem: 1) Broad spectrum antibiotics 2) Pt has [place] insurance and needs to be transferred to a [place] facility for definitive treatment. 3) Strict control of DM.
--- NOTE | 2020-08-25 15:19 | XRay Report ---
Chest 2 view INDICATION: Dyspnea IMPRESSION: The far right lateral and lower aspect of the chest cannot be evaluated as it was not rustam ged. The remainder of the right lung is unremarkable. The left lung is clear. Port terminates near th e SVC/right atrial junction. Signer Name: William Thomas MD Signed: 08/25/2020 3:14 PM Workstation Name: [id number]
--- NOTE | 2020-08-25 18:35 | Consultation ---
History of Present Illness - Reason for Consult Consult date: 08/25/20 - History of Present Illness 40-year-old male past medical history hypertension, diabetes, colon cancer with previous colon resection, peptic ulcer disease in the hospital complaining of shortness of breath and fatigue. This began approximately 2 to 3 weeks prior to admission. He otherwise denied any other symptoms such as fevers, sweats, chills. He does report having myalgias. Afebrile with a white count of 18 with neutrophil predominance. Normal renal function. Currently on clindamycin. Blood cultures currently pending. Imaging personally reviewed: CT abdomen pelvis: No abnormality CT chest: No evidence of pneumonia Review of Systems: Bold if positive, otherwise negative General: fevers, chills, rigors HEENT: visual disturbance, diplopia, eye pain Respiratory: cough, sputum, hemoptysis, shortness of breath Cardiovascular: chest pain, syncope Gastrointestinal: nausea, vomiting, diarrhea, abdominal pain Genitourinary: dysuria, hematuria, flank pain Musculoskeletal: neck pain, back pain, joint pain, edema Neurologic: headaches, seizures Hematologic: easy bruising or bleeding Endocrine: night sweats, acute weight loss Skin: rash, jaundice, redness Psychiatric: suicidal, homicidal ideation Past History Past Medical History: diabetes, hypertension, other (History of colon cancer, peptic ulcer disease) Past Surgical History: Other (Colon resection) Social history: no significant social history Family history: no significant family history Medications and Allergies Allergies Allergy/AdvReac Type Severity Reaction Status Date / Time Penicillins Allergy Unknown Verified 03/10/13 06:35 Home Medications Medication Instructions Recorded Confirmed Last Taken Type Glimepiride [Amaryl] 1 mg PO QDDIAB #30 tablet 05/04/15 Unknown Rx Pantoprazole [Protonix] 40 mg PO BID #60 tablet 05/04/15 Unknown Rx Sucralfate [Carafate] 1 gm PO Q6HR #60 oral.liqd 05/04/15 Unknown Rx amLODIPine 2.5 mg PO QDAY #30 tablet 05/04/15 Unknown Rx carvediloL [Coreg] 6.25 mg PO BID #30 tablet 05/04/15 Unknown Rx Active Meds: Active Medications Acetaminophen (Acetaminophen 325 Mg Tab) 650 mg PO Q4H PRN PRN Reason: Pain MILD(1-3)/Fever >100.5/SCOTT Amlodipine Besylate (Amlodipine 5 Mg Tab) 2.5 mg PO QDAY [facility] Last Admin: 08/25/20 13:59 Dose: 2.5 mg Documented by: Carvedilol (Carvedilol 6.25 Mg Tab) 6.25 mg PO BID@0800,1700 [facility] Last Admin: 08/25/20 14:05 Dose: 6.25 mg Documented by: Sodium Chloride (Nacl 0.9% 1000 Ml) 1,000 mls @ 125 mls/hr IV DIRECT [facility] Last Admin: 08/25/20 13:56 Dose: 125 mls/hr Documented by: Clindamycin HCl (Cleocin 600 Mg/50 Ml) 600 mg in 50 mls @ 100 mls/hr IV Q8H [facility]; Protocol Last Admin: 08/25/20 14:01 Dose: 100 mls/hr Documented by: Lactobacillus Rhamnosus (Lactobacillus Rhamnosus Gg 1 Each Cap) 1 each PO BID [facility]STR[facility] Magnesium Hydroxide (Magnesium Hydroxide (Mom) Oral Liqd Udc) 30 ml PO Q4H PRN PRN Reason: Constipation Morphine Sulfate (Morphine 2 Mg/1 Ml Inj) 2 mg IV Q4H PRN PRN Reason: Pain, Moderate (4-6) Last Admin: 08/25/20 15:03 Dose: 2 mg Documented by: Ondansetron HCl (Ondansetron 4 Mg/2 Ml Inj) 4 mg IV Q8H PRN PRN Reason: Nausea And Vomiting Pantoprazole Sodium (Pantoprazole 40 Mg Tab) 40 mg PO BIDAC [facility] Sodium Chloride (Sodium Chloride 0.9% 10 Ml Flush Syringe) 10 ml IV BID [facility] Last Admin: 08/25/20 14:05 Dose: 10 ml Documented by: Sodium Chloride (Sodium Chloride 0.9% 10 Ml Flush Syringe) 10 ml IV PRN PRN PRN Reason: LINE FLUSH Sucralfate (Sucralfate 1 Gm/10 Ml Oral Liqd) 1 gm PO Q6HR [facility] Last Admin: 08/25/20 13:58 Dose: 1 gm Documented by: Physical Examination - Physical Exam Narrative exam: Physical Exam: Constitutional: Alert, cooperative. No acute distress Head, Ears, Nose: Normocephalic, atraumatic. External ears, nose normal Eyes: Conjunctivae/corneas clear. No icterus. No ptosis. Neck: Supple, no meningeal signs Oral: dentition fair, no thrush Cardiovascular: S1, S2 normal. Respiratory: Good air entry, clear to auscultation bilaterally GI: Soft, non-tender; bowel sounds normal. No peritoneal signs. Musculoskeletal: No pedal edema, no cyanosis. Skin: Large wounds of hidradenitis in the bilateral axillary, groin areas. See images in chart for details. Hem/Lymphatic: No palpable cervical or supraclavicular nodes. No lymphangitis Psych: Mood ok. Affect normal Neurological: Awake, alert, oriented. No gross abnormality - Constitutional Vitals: Vital Signs Temp Pulse Resp BP Pulse Ox 97.8 F 84 16 106/64 100 08/25/20 15:05 08/25/20 15:05 08/25/20 15:05 08/25/20 15:05 08/25/20 15:05 Temperature -Last 24 Hours Temperature 97.8 F Temperature 97.6 F Temperature 98.4 F Temperature 97.5 F Temperature 98.1 F Results - Labs CBC & Chem 7: 08/25/20 01:07 08/25/20 01:07 Labs: Abnormal lab results 08/25/20 08/25/20 Range/Units 01:07 01:07 WBC 18.0 H (4.5-11.0) K/mm3 Hgb 9.0 L (11.8-15.2) gm/dl Hct 29.7 L (35.5-45.6) % MCV 66 L (84-94) fl MCH 20 L (28-32) pg MCHC 30 L (32-34) % RDW 18.5 H (13.2-15.2) % Plt Count 717 H (140-440) K/mm3 Seg Neuts % (Manual) 89.0 H (40.0-70.0) % Lymphocytes % (Manual) 5.0 L (13.4-35.0) % Seg Neutrophils # Man 16.0 H (1.8-7.7) K/mm3 Lymphocytes # (Manual) 0.9 L (1.2-5.4) K/mm3 Monocytes # (Manual) 0.9 H (0.0-0.8) K/mm3 Sodium 127 L (137-145) mmol/L Chloride 90.3 L (98-107) mmol/L Glucose 155 H (75-100) mg/dL Calcium 8.2 L (8.4-10.2) mg/dL Assessment and Plan Cultures: Blood culture no growth so far A/P: 40-year-old male past medical history hypertension, diabetes, colon cancer with previous colon resection, peptic ulcer disease admitted with hidradenitis suppurativa flare #Hydradenitis suppurativa: Significant wounds, likely need surgical debridement. Noted from chart patient actually has [place] insurance and will be transferred to [place] facility. In the meantime we will continue antibiotics. #Diabetes: tight glycemic control for best outcomes. Recs: -Agree with empiric clindamycin for now, if no response and white count will escalate to vancomycin and Zosyn. -Likely need surgical debridement Thank you for the consult, we will continue to follow. MD Ryan Caldwell [facility] O: [phone] F: [phone]
[2020-08-25] MEDS: PANTOPRAZOLE 40 MG TAB PO SCH (18:56)
[2020-08-25] MEDS: LACTOBACILLUS RHAMNOSUS GG 1 EACH CAP PO SCH (21:27)
[2020-08-26] MEDS: SUCRALFATE 1 GM/10 ML ORAL LIQD PO SCH ×4 (00:47→17:18)
[2020-08-26] MEDS: CLINDAMYCIN 600 MG/50 mL 600 MG/50 ML BAG IV SCH ×3 (02:32→17:18)
[2020-08-26] MEDS: SODIUM CHLORIDE 0.9% 1000 ML 1,000 ML IV SCH ×2 (05:01→17:16)
[2020-08-26 06:51] LABS: Basophils # (Auto) 0.1 K/mm3 (0.0-0.1); Basophils % (Auto) 0.6 % (0.0-1.8); Eosinophils # (Auto) 0.2 K/mm3 (0.0-0.4); Eosinophils % (Auto) 1.4 % (0.0-4.3); Hematocrit 24.2 % (35.5-45.6); Hemoglobin 7.3 gm/dl (11.8-15.2); Lymphocytes # (Auto) 1.9 K/mm3 (1.2-5.4); Lymphocytes % (Auto) 12.4 % (13.4-35.0); Mean Corpuscular HGB Conc 30 % (32-34); Monocytes % (Auto) 6.6 % (0.0-7.3); Platelet Count 555 K/mm3 (140-440); Red Blood Count 3.67 M/mm3 (3.65-5.03); Red Cell Distribution Width 18.6 % (13.2-15.2)
[2020-08-26 06:58] LABS: Mean Corpuscular Volume 66 fl (84-94)
[2020-08-26 07:00] LABS: INR 1.44 (0.87-1.13)
[2020-08-26 07:14] LABS: Blood Urea Nitrogen 4 mg/dL (9-20); Calcium 7.7 mg/dL (8.4-10.2); Hemolysis Index 1; Iron 15 ug/dL (49-181); Total Iron Binding Capacity 70 mcg/dL (250-450)
[2020-08-26 07:15] LABS: BUN/Creatinine Ratio 7
--- NOTE | 2020-08-26 10:21 | Gastroenterology Progress Note ---
Assessment and Plan 1. Chronic anemia - no overt gi bleeding, blood tinge is likely from buttock hydradenitis. reports h/o colon cancer last year s/p partial colon resection and chemotherapy at [facility]. no plans for endoscopy at present time unless signs of overt bleeding. cont PPI BID dosing, okay from gi stand point for po intake. 2. Hidradenitis suppurrativa - ID/surgery following 3. history of colon cancer - will need f/u with primary GI as outpatient will sign off, please call as needed Subjective Date of service: 08/26/20 Principal diagnosis: anemia Interval history: patient tolerated po yesterday; no overt gi bleeding. having blood tinged discharge from buttock hydradenitis. Objective - Constitutional Vitals: Temp Pulse Resp BP Pulse Ox 98.6 F 79 16 106/69 99 08/26/20 09:09 08/26/20 09:09 08/26/20 09:09 08/26/20 09:09 08/26/20 09:09 General appearance: no acute distress - Respiratory Respiratory effort: normal Respiratory: bilateral: CTA - Gastrointestinal General gastrointestinal: Present: soft, non-tender, non-distended - Labs CBC & Chem 7: 08/26/20 05:00 08/26/20 05:00 Labs: Laboratory Results - last 24 hr 08/25/20 08/25/20 08/26/20 08:12 21:22 05:00 WBC 15.2 H RBC 3.67 Hgb 7.3 L Hct 24.2 L MCV 66 L MCH 20 L MCHC 30 L RDW 18.6 H Plt Count 555 H Lymph % (Auto) 12.4 L [place] % (Auto) 6.6 Eos % (Auto) 1.4 Baso % (Auto) 0.6 Lymph # (Auto) 1.9 [place] # (Auto) 1.0 H Eos # (Auto) 0.2 Baso # (Auto) 0.1 Seg Neutrophils % 79.0 H Seg Neutrophils # 12.0 H PT INR Sodium Potassium Chloride Carbon Dioxide Anion Gap BUN Creatinine Estimated GFR BUN/Creatinine Ratio Glucose POC Glucose 104 93 Calcium Iron TIBC Ferritin 08/26/20 08/26/20 08/26/20 05:00 05:00 05:00 WBC RBC Hgb Hct MCV MCH MCHC RDW Plt Count Lymph % (Auto) [place] % (Auto) Eos % (Auto) Baso % (Auto) Lymph # (Auto) [place] # (Auto) Eos # (Auto) Baso # (Auto) Seg Neutrophils % Seg Neutrophils # PT 17.5 H INR 1.44 H Sodium 135 L D Potassium 3.5 L D Chloride 102.9 Carbon Dioxide 27 Anion Gap 9 BUN 4 L Creatinine 0.6 L Estimated GFR > 60 BUN/Creatinine Ratio 7 Glucose 117 H POC Glucose Calcium 7.7 L Iron 15 L TIBC 70 L Ferritin 1304.0 H 08/26/20 07:59 WBC RBC Hgb Hct MCV MCH MCHC RDW Plt Count Lymph % (Auto) [place] % (Auto) Eos % (Auto) Baso % (Auto) Lymph # (Auto) [place] # (Auto) Eos # (Auto) Baso # (Auto) Seg Neutrophils % Seg Neutrophils # PT INR Sodium Potassium Chloride Carbon Dioxide Anion Gap BUN Creatinine Estimated GFR BUN/Creatinine Ratio Glucose POC Glucose 119 H Calcium Iron TIBC Ferritin
[2020-08-26] MEDS: PANTOPRAZOLE 40 MG TAB PO SCH ×2 (10:41→17:19)
[2020-08-26] MEDS: amLODIPine 5 MG TAB PO SCH (10:41)
[2020-08-26] MEDS: carvediloL 6.25 MG TAB PO SCH ×2 (10:41→17:20)
[2020-08-26] MEDS: LACTOBACILLUS RHAMNOSUS GG 1 EACH CAP PO SCH ×2 (10:45→22:27)
[2020-08-26] MEDS ORDERED: POTASSIUM CHLORIDE ER 20 MEQ TAB PO NR (11:09)
[2020-08-26] MEDS: MORPHINE 2 MG/1 ML INJ IV PRN ×2 (11:28→22:29)
--- NOTE | 2020-08-26 12:38 | Progress Note ---
Assessment and Plan Assessment and plan: #Sepsis multiple hidradenitis suppurativa with drainage involving the axillary and buttock/groin regions On empirical clindamycin. Culturelle ID and surgery eval noted - patient does not have [employer] insurance anymore. Now self pay and pending medicaid Wound care - will need close wound care follow up at discharge Final antibiotics to be decided by ID> as per surgery, debridement will likely be performed in stages and will be outpatient #Shortness of breath on admission Resolved COVID-19 test negative #Chronic anemia Hemoglobin stable Trend hemoglobin for now GI evaluation -follow up with GI in the office advised #History of colon cancer Status post colon resection and chemo therapy Needs to follow-up with GI. has no insurance at this time but applying for medicaid #DVT prophylaxis-SCDs/encourage ambulation for now History Interval history: 08/25 Patient seen and examined at bedside this morning On IV antibiotics for suppurative hidradenitis GI consulted for possible colonoscopy 08/26 He apparently does not have [employer] insurance anymore Remains on antibiotics He will need to have surgical management as outpatient as per general surgery Vitals stable. Hospitalist Physical - Physical exam Narrative exam: VITAL SIGNS: Reviewed. GENERAL: Awake HEAD: No signs of head trauma. EYES: Pupils are equal. Extraocular motions intact. MOUTH: Oropharynx is normal. NECK: No adenopathy, no JVD. CHEST: Chest with diminished breath sounds bilaterally. No wheezes, rales, or rhonchi. CARDIAC: normal S1 and S2, without murmurs, gallops, or rubs. ABDOMEN: Soft, non tender and non distended. No rebound or guarding, and no masses palpated. Bowel Sounds normal. MUSCULOSKELETAL: Multiple hidradenitis suppurativa with discharge in bilateral axilla Genitourinary: Hidradenitis of the groin area NEUROLOGIC EXAM: Alert and oriented x3. No focal neurologic deficits SKIN: No obvious lesions - Constitutional Vitals: Temp Pulse Resp BP Pulse Ox 98.6 F 79 16 106/69 99 08/26/20 09:09 08/26/20 09:09 08/26/20 09:09 08/26/20 09:09 08/26/20 09:09 HEART Score - HEART Score Troponin: Troponin T < 0.010 ng/mL (0.00-0.029) 08/25/20 01:07 Results - Labs CBC & Chem 7: 08/26/20 05:00 08/26/20 05:00 Labs: Laboratory Last Values WBC 15.2 K/mm3 (4.5-11.0) H 08/26/20 05:00 RBC 3.67 M/mm3 (3.65-5.03) 08/26/20 05:00 Hgb 7.3 gm/dl (11.8-15.2) L 08/26/20 05:00 Hct 24.2 % (35.5-45.6) L 08/26/20 05:00 MCV 66 fl (84-94) L 08/26/20 05:00 MCH 20 pg (28-32) L 08/26/20 05:00 MCHC 30 % (32-34) L 08/26/20 05:00 RDW 18.6 % (13.2-15.2) H 08/26/20 05:00 Plt Count 555 K/mm3 (140-440) H 08/26/20 05:00 Lymph % (Auto) 12.4 % (13.4-35.0) L 08/26/20 05:00 [place] % (Auto) 6.6 % (0.0-7.3) 08/26/20 05:00 Eos % (Auto) 1.4 % (0.0-4.3) 08/26/20 05:00 Baso % (Auto) 0.6 % (0.0-1.8) 08/26/20 05:00 Lymph # (Auto) 1.9 K/mm3 (1.2-5.4) 08/26/20 05:00 [place] # (Auto) 1.0 K/mm3 (0.0-0.8) H 08/26/20 05:00 Eos # (Auto) 0.2 K/mm3 (0.0-0.4) 08/26/20 05:00 Baso # (Auto) 0.1 K/mm3 (0.0-0.1) 08/26/20 05:00 Add Manual Diff Complete 08/25/20 01:07 Total Counted 100 08/25/20 01:07 Seg Neutrophils % 79.0 % (40.0-70.0) H 08/26/20 05:00 Seg Neuts % (Manual) 89.0 % (40.0-70.0) H 08/25/20 01:07 Band Neutrophils % 1.0 % 08/25/20 01:07 Lymphocytes % (Manual) 5.0 % (13.4-35.0) L 08/25/20 01:07 Monocytes % (Manual) 5.0 % (0.0-7.3) 08/25/20 01:07 Nucleated RBC % Not Reportable 08/25/20 01:07 Seg Neutrophils # 12.0 K/mm3 (1.8-7.7) H 08/26/20 05:00 Seg Neutrophils # Man 16.0 K/mm3 (1.8-7.7) H 08/25/20 01:07 Band Neutrophils # 0.2 K/mm3 08/25/20 01:07 Lymphocytes # (Manual) 0.9 K/mm3 (1.2-5.4) L 08/25/20 01:07 Abs React Lymphs (Man) 0.0 K/mm3 08/25/20 01:07 Monocytes # (Manual) 0.9 K/mm3 (0.0-0.8) H 08/25/20 01:07 Eosinophils # (Manual) 0.0 K/mm3 (0.0-0.4) 08/25/20 01:07 Basophils # (Manual) 0.0 K/mm3 (0.0-0.1) 08/25/20 01:07 Metamyelocytes # 0.0 K/mm3 08/25/20 01:07 Myelocytes # 0.0 K/mm3 08/25/20 01:07 Promyelocytes # 0.0 K/mm3 08/25/20 01:07 Blast Cells # 0.0 K/mm3 08/25/20 01:07 WBC Morphology Not Reportable 08/25/20 01:07 Hypersegmented Neuts Not Reportable 08/25/20 01:07 Hyposegmented Neuts Not Reportable 08/25/20 01:07 Hypogranular Neuts Not Reportable 08/25/20 01:07 Smudge Cells Not Reportable 08/25/20 01:07 Toxic Granulation Not Reportable 08/25/20 01:07 Toxic Vacuolation Not Reportable 08/25/20 01:07 Dohle Bodies Not Reportable 08/25/20 01:07 Pelger-Huet Anomaly Not Reportable 08/25/20 01:07 Janet Rods Not Reportable 08/25/20 01:07 Platelet Estimate Consistent w auto 08/25/20 01:07 Clumped Platelets Not Reportable 08/25/20 01:07 Plt Clumps, EDTA Not Reportable 08/25/20 01:07 Large Platelets Not Reportable 08/25/20 01:07 Giant Platelets Not Reportable 08/25/20 01:07 Platelet Satelliting Not Reportable 08/25/20 01:07 Plt Morphology Comment Not Reportable 08/25/20 01:07 RBC Morphology Not Reportable 08/25/20 01:07 Dimorphic RBCs Not Reportable 08/25/20 01:07 Polychromasia Not Reportable 08/25/20 01:07 Hypochromasia 2+ 08/25/20 01:07 Poikilocytosis Not Reportable 08/25/20 01:07 Anisocytosis Not Reportable 08/25/20 01:07 Microcytosis 1+ 08/25/20 01:07 Macrocytosis Not Reportable 08/25/20 01:07 Spherocytes Not Reportable 08/25/20 01:07 Pappenheimer Bodies Not Reportable 08/25/20 01:07 Sickle Cells Not Reportable 08/25/20 01:07 Target Cells Not Reportable 08/25/20 01:07 Tear Drop Cells Not Reportable 08/25/20 01:07 Ovalocytes Not Reportable 08/25/20 01:07 Helmet Cells Not Reportable 08/25/20 01:07 [place] Bodies Not Reportable 08/25/20 01:07 [place] Rings Not Reportable 08/25/20 01:07 Jean Cells Not Reportable 08/25/20 01:07 Bite Cells Not Reportable 08/25/20 01:07 Crenated Cell Not Reportable 08/25/20 01:07 Elliptocytes Not Reportable 08/25/20 01:07 Acanthocytes (Spur) Not Reportable 08/25/20 01:07 Rouleaux Not Reportable 08/25/20 01:07 Hemoglobin C Crystals Not Reportable 08/25/20 01:07 Schistocytes Not Reportable 08/25/20 01:07 Malaria parasites Not Reportable 08/25/20 01:07 Rishi Bodies Not Reportable 08/25/20 01:07 Hem Pathologist Commnt No 08/25/20 01:07 PT 17.5 Sec. (12.2-14.9) H 08/26/20 05:00 INR 1.44 (0.87-1.13) H 08/26/20 05:00 Sodium 135 mmol/L (137-145) L D 08/26/20 05:00 Potassium 3.5 mmol/L (3.6-5.0) L D 08/26/20 05:00 Chloride 102.9 mmol/L (98-107) 08/26/20 05:00 Carbon Dioxide 27 mmol/L (22-30) 08/26/20 05:00 Anion Gap 9 mmol/L 08/26/20 05:00 BUN 4 mg/dL (9-20) L 08/26/20 05:00 Creatinine 0.6 mg/dL (0.8-1.3) L 08/26/20 05:00 Estimated GFR > 60 ml/min 08/26/20 05:00 BUN/Creatinine Ratio 7 % 08/26/20 05:00 Glucose 117 mg/dL (75-100) H 08/26/20 05:00 POC Glucose 119 mg/dL (70-105) H 08/26/20 07:59 Lactic Acid 1.90 mmol/L (0.7-2.0) 08/25/20 01:38 Calcium 7.7 mg/dL (8.4-10.2) L 08/26/20 05:00 Iron 15 ug/dL (49-181) L 08/26/20 05:00 TIBC 70 mcg/dL (250-450) L 08/26/20 05:00 Ferritin 1304.0 ng/mL (30.0-300.0) H 08/26/20 05:00 Troponin T < 0.010 ng/mL (0.00-0.029) 08/25/20 01:07 NT-Pro-B Natriuret Pep 218.3 pg/mL (0-450) 08/25/20 01:07 Nasal Screen MRSA (PCR) Negative (Negative) 08/25/20 Unknown Microbiology: Microbiology 08/25/20 04:01 Peripheral/Venous Blood Culture - Preliminary NO GROWTH AFTER 24 HOURS 08/25/20 03:34 Peripheral/Venous Blood Culture - Preliminary NO GROWTH AFTER 24 HOURS Han/IV: Voiding Method Urinal Active Medications - Current Medications Current Medications: Generic Name Dose Route Start Last Admin Trade Name Freq PRN Reason Stop Dose Admin Acetaminophen 650 mg 08/25/20 04:09 Acetaminophen 325 Mg Tab PO Q4H PRN Pain MILD(1-3)/Fever >100.5/SCOTT Amlodipine Besylate 2.5 mg 08/25/20 10:00 08/26/20 10:41 Amlodipine 5 Mg Tab PO 2.5 mg QDAY ASTRID Administration Carvedilol 6.25 mg 08/25/20 08:00 08/26/20 10:41 Carvedilol 6.25 Mg Tab PO 6.25 mg BID@0800,1700 ASTRID Administration Sodium Chloride 1,000 mls @ 125 mls/hr 08/25/20 04:15 08/26/20 05:01 Nacl 0.9% 1000 Ml IV 125 mls/hr DIRECT ASTRID Administration Clindamycin HCl 600 mg in 50 mls @ 100 mls/hr 08/25/20 10:00 08/26/20 10:44 Cleocin 600 Mg/50 Ml IV 100 mls/hr Q8H ASTRID Administration Protocol Lactobacillus Rhamnosus 1 each 08/25/20 22:00 08/26/20 10:45 Lactobacillus Rhamnosus Gg 1 Each Cap PO 1 each BID ASTRID Administration Magnesium Hydroxide 30 ml 08/25/20 04:09 Magnesium Hydroxide (Mom) Oral Liqd Udc PO Q4H PRN Constipation Morphine Sulfate 2 mg 08/25/20 04:09 08/26/20 11:28 Morphine 2 Mg/1 Ml Inj IV 2 mg Q4H PRN Administration Pain, Moderate (4-6) Ondansetron HCl 4 mg 08/25/20 04:09 Ondansetron 4 Mg/2 Ml Inj IV Q8H PRN Nausea And Vomiting Pantoprazole Sodium 40 mg 08/25/20 16:30 08/26/20 10:41 Pantoprazole 40 Mg Tab PO 40 mg BIDAC ASTRID Administration Sodium Chloride 10 ml 08/25/20 10:00 08/26/20 10:45 Sodium Chloride 0.9% 10 Ml Flush Syringe IV 10 ml BID ASTRID Administration Sodium Chloride 10 ml 08/25/20 04:09 Sodium Chloride 0.9% 10 Ml Flush Syringe IV PRN PRN LINE FLUSH Sucralfate 1 gm 08/25/20 06:00 08/26/20 05:01 Sucralfate 1 Gm/10 Ml Oral Liqd PO 1 gm Q6HR ASTRID Administration Nutrition/Malnutrition Assess - Dietary Evaluation Nutrition/Malnutrition Findings: Nutrition Notes Start: 08/25/20 11:58 Freq: Status: Active Protocol: Document 08/25/20 12:02 AT (Rec: 08/25/20 12:23 AT [id number]) Co-Sign 08/25/20 12:02 CW Nutrition Notes Need for Assessment generated from: MD Order,MST,Low BMI Initial or Follow up Assessment Current Diagnosis Diabetes,Sepsis,Hypertension Other Pertinent Diagnosis Anemia, Melena, Wounds, s/p colon CA/colon resection, Hidradenitis, PUD Current Diet NPO Labs/Tests Na 127 BG 155 Pertinent Medications NS at 125 mL/hr Zofran Height 6 ft 2 in Weight 63.503 kg Usual Body Weight 86.36 kg [place] Body Weight (kg) 86.36 BMI 17.9 Intake Prior to Admission Fair Weight change and time frame 26% weight loss in 3-4 months per pt report 35% weight loss in 2 years ( prior admission) Weight Status Underweight Subjective/Other Information Consult for poor oral intake, ONS, MST of 2 and skin risk. Was unable to carry out physical inspection for malnutrition, because pt was fully covered. Pt reports weight loss as a result of chemotherapy and altered taste . Per chart, pt has multiple wounds as a result of Hidradenitis Suppurativa. Pt would prefer to eat more, but feels that he physically cannot. Pt reports having a normal appetite. Will continue to follow for diet advancement. Pt drinks ONS at home, but is open to double portions of protein. Percent of energy/protein needs met: 0%/0% Burn Absent Trauma Absent GI Symptoms None Food Allergy No Usual Diet at Home Regular Skin Integrity/Comment Multiple wounds Current % PO Negligible Minimum of two criteria Yes Energy Intake (severe) < or equal to 50% Estimated Energy Requirement > or equal to 5 days Interpretation of Weight Loss (severe) >7.5% in 3 months #2 Nutrition Diagnosis Increased nutrient needs ( specify in comment below) Comments: protein Etiology severe skin inflammation ( wounds) As Evidenced by Signs and Symptoms need for wound healing #1 Nutrition Diagnosis Malnutrition Etiology colon cancer As Evidenced by Signs and Symptoms >7.5% weight loss in 3 months and reported intake of less than <50% estimated energy requirement Is patient on ventilator? No Is Patient Ambulatory and/or Out of Bed Yes REE-([place]-St. Jeor-ambulatory/OOB) [ 2099.214 [id number]] Kcal/Kg value to use for calculation 35 Approximate Energy Requirements Using 2223 kcal/Kg Calculation Used for Recommendations Kcal/kg Additional Notes PRO needs: 79-95g (1.25 - 1.5 g/kg) Fluid needs: 1 mL/kcal or per MD Nutrition Intervention Change Diet Order: Advance diet when medically feasible to Cardiac/Consistent CHO with double portions of protein Add Supplement/Snack (indicate name/kcal Glucerna BID (Chocolate, /protein ) [place], Vanilla) Provides kCal: 440 Provides Protein (gm) 20 Goal #1 Wound healing Goal #2 Meet at least 80% of energy and protein needs via diet and ONS Anticipated Discharge Needs: Cardiac/Consistent CHO Follow-Up By: 08/30/20 Additional Comments Follow up for diet advancement , ONS tolerance, intakes
--- NOTE | 2020-08-26 13:59 | Progress Note ---
Assessment and Plan Cultures: Blood culture no growth so far A/P: 40-year-old male past medical history hypertension, diabetes, colon cancer with previous colon resection, peptic ulcer disease admitted with hidradenitis suppurativa flare #Hydradenitis suppurativa: Significant wounds, likely need surgical debridement. Patient no longer with [employer] insurance, will have outpatient surgery for debridement. #Diabetes: tight glycemic control for best outcomes. Recs: -Agree with empiric clindamycin for now, if no response with white count will escalate to vancomycin and Zosyn. -Once stabilized, would discharge with 3 weeks clindamycin 450 mg every 8 hours -Needs surgical debridement, wound care Thank you for the consult, we will continue to follow. Elizabeth Amado MD [facility] ([facility]) O: [phone] F: [phone] Subjective Date of service: 08/26/20 Principal diagnosis: anemia Interval history: Afebrile, white count slightly improved to 15.2. Blood cultures remain negative so far. Objective - Exam Narrative Exam: Physical Exam: Constitutional: Alert, cooperative. No acute distress Head, Ears, Nose: Normocephalic, atraumatic. External ears, nose normal Eyes: Conjunctivae/corneas clear. No icterus. No ptosis. Neck: Supple, no meningeal signs Oral: dentition fair, no thrush Cardiovascular: S1, S2 normal. Respiratory: Good air entry, clear to auscultation bilaterally GI: Soft, non-tender; bowel sounds normal. No peritoneal signs. Musculoskeletal: No pedal edema, no cyanosis. Skin: Large wounds of hidradenitis in the bilateral axillary, groin areas. See images in chart for details. Hem/Lymphatic: No palpable cervical or supraclavicular nodes. No lymphangitis Psych: Mood ok. Affect normal Neurological: Awake, alert, oriented. No gross abnormality - Constitutional Vitals: Vital Signs Temp Pulse Resp BP Pulse Ox 98.6 F 79 16 106/69 99 08/26/20 09:09 08/26/20 09:09 08/26/20 09:09 08/26/20 09:09 08/26/20 09:09 Temperature -Last 24 Hours Temperature 98.6 F Temperature 98.0 F Temperature 98.5 F Temperature 97.3 F Temperature 97.8 F - Labs CBC & Chem 7: 08/26/20 05:00 08/26/20 05:00 Labs: Abnormal lab results 08/26/20 08/26/20 08/26/20 Range/Units 05:00 05:00 05:00 WBC 15.2 H (4.5-11.0) K/mm3 Hgb 7.3 L (11.8-15.2) gm/dl Hct 24.2 L (35.5-45.6) % MCV 66 L (84-94) fl MCH 20 L (28-32) pg MCHC 30 L (32-34) % RDW 18.6 H (13.2-15.2) % Plt Count 555 H (140-440) K/mm3 Lymph % (Auto) 12.4 L (13.4-35.0) % [place] # (Auto) 1.0 H (0.0-0.8) K/mm3 Seg Neutrophils % 79.0 H (40.0-70.0) % Seg Neutrophils # 12.0 H (1.8-7.7) K/mm3 PT 17.5 H (12.2-14.9) Sec. INR 1.44 H (0.87-1.13) Sodium 135 L D (137-145) mmol/L Potassium 3.5 L D (3.6-5.0) mmol/L BUN 4 L (9-20) mg/dL Creatinine 0.6 L (0.8-1.3) mg/dL Glucose 117 H (75-100) mg/dL POC Glucose (70-105) mg/dL Calcium 7.7 L (8.4-10.2) mg/dL Iron 15 L (49-181) ug/dL TIBC 70 L (250-450) mcg/dL Ferritin (30.0-300.0) ng/mL 08/26/20 08/26/20 Range/Units 05:00 07:59 WBC (4.5-11.0) K/mm3 Hgb (11.8-15.2) gm/dl Hct (35.5-45.6) % MCV (84-94) fl MCH (28-32) pg MCHC (32-34) % RDW (13.2-15.2) % Plt Count (140-440) K/mm3 Lymph % (Auto) (13.4-35.0) % [place] # (Auto) (0.0-0.8) K/mm3 Seg Neutrophils % (40.0-70.0) % Seg Neutrophils # (1.8-7.7) K/mm3 PT (12.2-14.9) Sec. INR (0.87-1.13) Sodium (137-145) mmol/L Potassium (3.6-5.0) mmol/L BUN (9-20) mg/dL Creatinine (0.8-1.3) mg/dL Glucose (75-100) mg/dL POC Glucose 119 H (70-105) mg/dL Calcium (8.4-10.2) mg/dL Iron (49-181) ug/dL TIBC (250-450) mcg/dL Ferritin 1304.0 H (30.0-300.0) ng/mL
[2020-08-27] MEDS: SUCRALFATE 1 GM/10 ML ORAL LIQD PO SCH ×5 (00:37→23:38)
[2020-08-27] MEDS: SODIUM CHLORIDE 0.9% 1000 ML 1,000 ML IV SCH ×3 (02:11→23:46)
[2020-08-27] MEDS: CLINDAMYCIN 600 MG/50 mL 600 MG/50 ML BAG IV SCH ×3 (02:11→17:41)
[2020-08-27] MEDS: PANTOPRAZOLE 40 MG TAB PO SCH ×2 (07:30→17:41)
[2020-08-27] MEDS: MORPHINE 2 MG/1 ML INJ IV PRN ×3 (09:45→23:39)
[2020-08-27] MEDS: carvediloL 6.25 MG TAB PO SCH ×2 (09:46→17:42)
[2020-08-27] MEDS: amLODIPine 5 MG TAB PO SCH (09:50)
[2020-08-27] MEDS: LACTOBACILLUS RHAMNOSUS GG 1 EACH CAP PO SCH ×2 (09:51→22:55)
--- NOTE | 2020-08-27 10:33 | Progress Note ---
Assessment and Plan Assessment and plan: #Sepsis multiple hidradenitis suppurativa with drainage involving the axillary and buttock/groin regions On empirical clindamycin. Culturelle ID and surgery eval noted - patient does not have [employer] insurance anymore. Now self pay and pending medicaid Wound care - will need close wound care follow up at discharge Final antibiotics to be decided by ID> as per surgery, debridement will likely be performed in stages and will be outpatient #Shortness of breath on admission Resolved COVID-19 test negative #Chronic anemia Hemoglobin stable Trend hemoglobin for now GI evaluation -follow up with GI in the office advised #History of colon cancer Status post colon resection and chemo therapy Needs to follow-up with GI. has no insurance at this time but applying for medicaid #DVT prophylaxis-SCDs/encourage ambulation for now History Interval history: 08/25 Patient seen and examined at bedside this morning On IV antibiotics for suppurative hidradenitis GI consulted for possible colonoscopy 08/26 He apparently does not have [employer] insurance anymore Remains on antibiotics He will need to have surgical management as outpatient as per general surgery Vitals stable. 08/27 On antibiotics ID following. Discussed with surgery - will need to have a follow up in the office. Debridement will be as outpatient Hospitalist Physical - Physical exam Narrative exam: VITAL SIGNS: Reviewed. GENERAL: Awake HEAD: No signs of head trauma. EYES: Pupils are equal. Extraocular motions intact. MOUTH: Oropharynx is normal. NECK: No adenopathy, no JVD. CHEST: Chest with diminished breath sounds bilaterally. No wheezes, rales, or rhonchi. CARDIAC: normal S1 and S2, without murmurs, gallops, or rubs. ABDOMEN: Soft, non tender and non distended. No rebound or guarding, and no masses palpated. Bowel Sounds normal. MUSCULOSKELETAL: Multiple hidradenitis suppurativa with discharge in bilateral axilla (dressing intact ) Genitourinary: Hidradenitis of the groin area (dressing intact) NEUROLOGIC EXAM: Alert and oriented x3. No focal neurologic deficits SKIN: No obvious lesions - Constitutional Vitals: Temp Pulse Resp BP Pulse Ox 97.9 F 70 18 108/65 100 08/27/20 08:48 08/27/20 09:50 08/27/20 08:48 08/27/20 09:50 08/27/20 08:48 General appearance: Present: no acute distress, well-nourished HEART Score - HEART Score Troponin: Troponin T < 0.010 ng/mL (0.00-0.029) 08/25/20 01:07 Results - Labs CBC & Chem 7: 08/26/20 05:00 08/26/20 05:00 Labs: Laboratory Last Values WBC 15.2 K/mm3 (4.5-11.0) H 08/26/20 05:00 RBC 3.67 M/mm3 (3.65-5.03) 08/26/20 05:00 Hgb 7.3 gm/dl (11.8-15.2) L 08/26/20 05:00 Hct 24.2 % (35.5-45.6) L 08/26/20 05:00 MCV 66 fl (84-94) L 08/26/20 05:00 MCH 20 pg (28-32) L 08/26/20 05:00 MCHC 30 % (32-34) L 08/26/20 05:00 RDW 18.6 % (13.2-15.2) H 08/26/20 05:00 Plt Count 555 K/mm3 (140-440) H 08/26/20 05:00 Lymph % (Auto) 12.4 % (13.4-35.0) L 08/26/20 05:00 [place] % (Auto) 6.6 % (0.0-7.3) 08/26/20 05:00 Eos % (Auto) 1.4 % (0.0-4.3) 08/26/20 05:00 Baso % (Auto) 0.6 % (0.0-1.8) 08/26/20 05:00 Lymph # (Auto) 1.9 K/mm3 (1.2-5.4) 08/26/20 05:00 [place] # (Auto) 1.0 K/mm3 (0.0-0.8) H 08/26/20 05:00 Eos # (Auto) 0.2 K/mm3 (0.0-0.4) 08/26/20 05:00 Baso # (Auto) 0.1 K/mm3 (0.0-0.1) 08/26/20 05:00 Add Manual Diff Complete 08/25/20 01:07 Total Counted 100 08/25/20 01:07 Seg Neutrophils % 79.0 % (40.0-70.0) H 08/26/20 05:00 Seg Neuts % (Manual) 89.0 % (40.0-70.0) H 08/25/20 01:07 Band Neutrophils % 1.0 % 08/25/20 01:07 Lymphocytes % (Manual) 5.0 % (13.4-35.0) L 08/25/20 01:07 Monocytes % (Manual) 5.0 % (0.0-7.3) 08/25/20 01:07 Nucleated RBC % Not Reportable 08/25/20 01:07 Seg Neutrophils # 12.0 K/mm3 (1.8-7.7) H 08/26/20 05:00 Seg Neutrophils # Man 16.0 K/mm3 (1.8-7.7) H 08/25/20 01:07 Band Neutrophils # 0.2 K/mm3 08/25/20 01:07 Lymphocytes # (Manual) 0.9 K/mm3 (1.2-5.4) L 08/25/20 01:07 Abs React Lymphs (Man) 0.0 K/mm3 08/25/20 01:07 Monocytes # (Manual) 0.9 K/mm3 (0.0-0.8) H 08/25/20 01:07 Eosinophils # (Manual) 0.0 K/mm3 (0.0-0.4) 08/25/20 01:07 Basophils # (Manual) 0.0 K/mm3 (0.0-0.1) 08/25/20 01:07 Metamyelocytes # 0.0 K/mm3 08/25/20 01:07 Myelocytes # 0.0 K/mm3 08/25/20 01:07 Promyelocytes # 0.0 K/mm3 08/25/20 01:07 Blast Cells # 0.0 K/mm3 08/25/20 01:07 WBC Morphology Not Reportable 08/25/20 01:07 Hypersegmented Neuts Not Reportable 08/25/20 01:07 Hyposegmented Neuts Not Reportable 08/25/20 01:07 Hypogranular Neuts Not Reportable 08/25/20 01:07 Smudge Cells Not Reportable 08/25/20 01:07 Toxic Granulation Not Reportable 08/25/20 01:07 Toxic Vacuolation Not Reportable 08/25/20 01:07 Dohle Bodies Not Reportable 08/25/20 01:07 Pelger-Huet Anomaly Not Reportable 08/25/20 01:07 Janet Rods Not Reportable 08/25/20 01:07 Platelet Estimate Consistent w auto 08/25/20 01:07 Clumped Platelets Not Reportable 08/25/20 01:07 Plt Clumps, EDTA Not Reportable 08/25/20 01:07 Large Platelets Not Reportable 08/25/20 01:07 Giant Platelets Not Reportable 08/25/20 01:07 Platelet Satelliting Not Reportable 08/25/20 01:07 Plt Morphology Comment Not Reportable 08/25/20 01:07 RBC Morphology Not Reportable 08/25/20 01:07 Dimorphic RBCs Not Reportable 08/25/20 01:07 Polychromasia Not Reportable 08/25/20 01:07 Hypochromasia 2+ 08/25/20 01:07 Poikilocytosis Not Reportable 08/25/20 01:07 Anisocytosis Not Reportable 08/25/20 01:07 Microcytosis 1+ 08/25/20 01:07 Macrocytosis Not Reportable 08/25/20 01:07 Spherocytes Not Reportable 08/25/20 01:07 Pappenheimer Bodies Not Reportable 08/25/20 01:07 Sickle Cells Not Reportable 08/25/20 01:07 Target Cells Not Reportable 08/25/20 01:07 Tear Drop Cells Not Reportable 08/25/20 01:07 Ovalocytes Not Reportable 08/25/20 01:07 Helmet Cells Not Reportable 08/25/20 01:07 [place] Bodies Not Reportable 08/25/20 01:07 [place] Rings Not Reportable 08/25/20 01:07 [place] Cells Not Reportable 08/25/20 01:07 Bite Cells Not Reportable 08/25/20 01:07 Crenated Cell Not Reportable 08/25/20 01:07 Elliptocytes Not Reportable 08/25/20 01:07 Acanthocytes (Spur) Not Reportable 08/25/20 01:07 Rouleaux Not Reportable 08/25/20 01:07 Hemoglobin C Crystals Not Reportable 08/25/20 01:07 Schistocytes Not Reportable 08/25/20 01:07 Malaria parasites Not Reportable 08/25/20 01:07 Rishi Bodies Not Reportable 08/25/20 01:07 Hem Pathologist Commnt No 08/25/20 01:07 PT 17.5 Sec. (12.2-14.9) H 08/26/20 05:00 INR 1.44 (0.87-1.13) H 08/26/20 05:00 Sodium 135 mmol/L (137-145) L D 08/26/20 05:00 Potassium 3.5 mmol/L (3.6-5.0) L D 08/26/20 05:00 Chloride 102.9 mmol/L (98-107) 08/26/20 05:00 Carbon Dioxide 27 mmol/L (22-30) 08/26/20 05:00 Anion Gap 9 mmol/L 08/26/20 05:00 BUN 4 mg/dL (9-20) L 08/26/20 05:00 Creatinine 0.6 mg/dL (0.8-1.3) L 08/26/20 05:00 Estimated GFR > 60 ml/min 08/26/20 05:00 BUN/Creatinine Ratio 7 % 08/26/20 05:00 Glucose 117 mg/dL (75-100) H 08/26/20 05:00 POC Glucose 92 mg/dL (70-105) 08/26/20 20:00 Lactic Acid 1.90 mmol/L (0.7-2.0) 08/25/20 01:38 Calcium 7.7 mg/dL (8.4-10.2) L 08/26/20 05:00 Iron 15 ug/dL (49-181) L 08/26/20 05:00 TIBC 70 mcg/dL (250-450) L 08/26/20 05:00 Ferritin 1304.0 ng/mL (30.0-300.0) H 08/26/20 05:00 Troponin T < 0.010 ng/mL (0.00-0.029) 08/25/20 01:07 NT-Pro-B Natriuret Pep 218.3 pg/mL (0-450) 08/25/20 01:07 Nasal Screen MRSA (PCR) Negative (Negative) 08/25/20 Unknown Microbiology: Microbiology 08/25/20 04:01 Peripheral/Venous Blood Culture - Preliminary NO GROWTH AFTER 24 HOURS 08/25/20 03:34 Peripheral/Venous Blood Culture - Preliminary NO GROWTH AFTER 24 HOURS Han/IV: Voiding Method Urinal Active Medications - Current Medications Current Medications: Generic Name Dose Route Start Last Admin Trade Name Freq PRN Reason Stop Dose Admin Acetaminophen 650 mg 08/25/20 04:09 Acetaminophen 325 Mg Tab PO Q4H PRN Pain MILD(1-3)/Fever >100.5/SCOTT Amlodipine Besylate 2.5 mg 08/25/20 10:00 08/27/20 09:50 Amlodipine 5 Mg Tab PO Not Given QDAY ASTRID Carvedilol 6.25 mg 08/25/20 08:00 08/27/20 09:46 Carvedilol 6.25 Mg Tab PO 6.25 mg BID@0800,1700 ASTRID Administration Sodium Chloride 1,000 mls @ 125 mls/hr 08/25/20 04:15 08/27/20 02:11 Nacl 0.9% 1000 Ml IV 125 mls/hr DIRECT ASTRID Administration Clindamycin HCl 600 mg in 50 mls @ 100 mls/hr 08/25/20 10:00 08/27/20 09:46 Cleocin 600 Mg/50 Ml IV 100 mls/hr Q8H ASTRID Administration Protocol Lactobacillus Rhamnosus 1 each 08/25/20 22:00 08/27/20 09:51 Lactobacillus Rhamnosus Gg 1 Each Cap PO 1 each BID ASTRID Administration Magnesium Hydroxide 30 ml 08/25/20 04:09 Magnesium Hydroxide (Mom) Oral Liqd Udc PO Q4H PRN Constipation Morphine Sulfate 2 mg 08/25/20 04:09 08/27/20 09:45 Morphine 2 Mg/1 Ml Inj IV 2 mg Q4H PRN Administration Pain, Moderate (4-6) Ondansetron HCl 4 mg 08/25/20 04:09 Ondansetron 4 Mg/2 Ml Inj IV Q8H PRN Nausea And Vomiting Pantoprazole Sodium 40 mg 08/25/20 16:30 08/27/20 07:30 Pantoprazole 40 Mg Tab PO 40 mg BIDAC ASTRID Administration Sodium Chloride 10 ml 08/25/20 10:00 08/27/20 09:51 Sodium Chloride 0.9% 10 Ml Flush Syringe IV 10 ml BID ASTRID Administration Sodium Chloride 10 ml 08/25/20 04:09 Sodium Chloride 0.9% 10 Ml Flush Syringe IV PRN PRN LINE FLUSH Sucralfate 1 gm 08/25/20 06:00 08/27/20 05:45 Sucralfate 1 Gm/10 Ml Oral Liqd PO 1 gm Q6HR ASTRID Administration Nutrition/Malnutrition Assess - Dietary Evaluation Nutrition/Malnutrition Findings: Nutrition Notes Start: 08/25/20 11: 58 Freq: Status: Active Protocol: Document 08/25/20 12:02 AT (Rec: 08/25/20 12:23 AT [id number]) Co-Sign 08/25/20 12:02 CW Nutrition Notes Need for Assessment generated from: MD Order,MST,Low BMI Initial or Follow up Assessment Current Diagnosis Diabetes,Sepsis,Hypertension Other Pertinent Diagnosis Anemia, Melena, Wounds, s/p colon CA/colon resection, Hidradenitis, PUD Current Diet NPO Labs/Tests Na 127 BG 155 Pertinent Medications NS at 125 mL/hr Zofran Height 6 ft 2 in Weight 63.503 kg Usual Body Weight 86.36 kg [place] Body Weight (kg) 86.36 BMI 17.9 Intake Prior to Admission Fair Weight change and time frame 26% weight loss in 3-4 months per pt report 35% weight loss in 2 years ( prior admission) Weight Status Underweight Subjective/Other Information Consult for poor oral intake, ONS, MST of 2 and skin risk. Was unable to carry out physical inspection for malnutrition, because pt was fully covered. Pt reports weight loss as a result of chemotherapy and altered taste . Per chart, pt has multiple wounds as a result of Hidradenitis Suppurativa. Pt would prefer to eat more, but feels that he physically cannot. Pt reports having a normal appetite. Will continue to follow for diet advancement. Pt drinks ONS at home, but is open to double portions of protein. Percent of energy/protein needs met: 0%/0% Burn Absent Trauma Absent GI Symptoms None Food Allergy No Usual Diet at Home Regular Skin Integrity/Comment Multiple wounds Current % PO Negligible Minimum of two criteria Yes Energy Intake (severe) < or equal to 50% Estimated Energy Requirement > or equal to 5 days Interpretation of Weight Loss (severe) >7.5% in 3 months #2 Nutrition Diagnosis Increased nutrient needs ( specify in comment below) Comments: protein Etiology severe skin inflammation ( wounds) As Evidenced by Signs and Symptoms need for wound healing #1 Nutrition Diagnosis Malnutrition Etiology colon cancer As Evidenced by Signs and Symptoms >7.5% weight loss in 3 months and reported intake of less than <50% estimated energy requirement Is patient on ventilator? No Is Patient Ambulatory and/or Out of Bed Yes REE-([place]-St. Jeor-ambulatory/OOB) [ 9.214 NUTR.MSJOOB] Kcal/Kg value to use for calculation 35 Approximate Energy Requirements Using 2223 kcal/Kg Calculation Used for Recommendations Kcal/kg Additional Notes PRO needs: 79-95g (1.25 - 1.5 g/kg) Fluid needs: 1 mL/kcal or per MD Nutrition Intervention Change Diet Order: Advance diet when medically feasible to Cardiac/Consistent CHO with double portions of protein Add Supplement/Snack (indicate name/kcal Glucerna BID (Chocolate, /protein ) Marshall, Vanilla) Provides kCal: 440 Provides Protein (gm) 20 Goal #1 Wound healing Goal #2 Meet at least 80% of energy and protein needs via diet and ONS Anticipated Discharge Needs: Cardiac/Consistent CHO Follow-Up By: 08/30/20 Additional Comments Follow up for diet advancement , ONS tolerance, intakes
[2020-08-27 11:04] LABS: Basophils # (Auto) 0.1 K/mm3 (0.0-0.1); Basophils % (Auto) 0.9 % (0.0-1.8); Eosinophils # (Auto) 0.1 K/mm3 (0.0-0.4); Eosinophils % (Auto) 1.2 % (0.0-4.3); Lymphocytes # (Auto) 1.7 K/mm3 (1.2-5.4); Lymphocytes % (Auto) 14.5 % (13.4-35.0); Mean Corpuscular HGB Conc 29 % (32-34); Monocytes # (Auto) 0.8 K/mm3 (0.0-0.8); Monocytes % (Auto) 6.9 % (0.0-7.3); Platelet Count 543 K/mm3 (140-440); Red Blood Count 3.74 M/mm3 (3.65-5.03); Red Cell Distribution Width 18.3 % (13.2-15.2)
[2020-08-27 11:32] LABS: Blood Urea Nitrogen 3 mg/dL (9-20); Hemolysis Index 0
[2020-08-27 11:37] LABS: Hematocrit 24.9 % (35.5-45.6); Hemoglobin 7.3 gm/dl (11.8-15.2); Mean Corpuscular Volume 67 fl (84-94)
[2020-08-27 11:38] LABS: Alanine Aminotransferase < 5 units/L (7-56); BUN/Creatinine Ratio 10
[2020-08-27 11:39] LABS: Calcium 5.3 mg/dL (8.4-10.2)
[2020-08-27] MEDS: POTASSIUM CHLORIDE 10 MEQ 10 MEQ/100 ML BAG IV SCH ×4 (12:54→16:46)
[2020-08-27] MEDS ORDERED: CALCIUM GLUCONATE 1,000 MG in SODIUM CHLORIDE 0.9% 100 ML IV ONE (13:00)
[2020-08-27] MEDS ORDERED: POTASSIUM CHLORIDE ER 20 MEQ TAB PO ONE (13:00)
[2020-08-27] MEDS: FERROUS SULFATE 325 MG TAB PO SCH (22:55)
[2020-08-28] MEDS: CLINDAMYCIN 600 MG/50 mL 600 MG/50 ML BAG IV SCH ×2 (02:08→09:03)
[2020-08-28] MEDS: SUCRALFATE 1 GM/10 ML ORAL LIQD PO SCH ×2 (06:49→13:37)
[2020-08-28] MEDS: PANTOPRAZOLE 40 MG TAB PO SCH ×2 (08:48→18:00)
[2020-08-28] MEDS: SODIUM CHLORIDE 0.9% 1000 ML 1,000 ML IV SCH (08:53)
[2020-08-28] MEDS: MORPHINE 2 MG/1 ML INJ IV PRN ×2 (08:53→16:57)
[2020-08-28] MEDS: carvediloL 6.25 MG TAB PO SCH ×2 (08:55→18:00)
--- NOTE | 2020-08-28 08:58 | Discharge Summary ---
Providers - Providers Date of Admission: 08/25/20 11:30 Date of discharge: 08/28/20 Attending physician: ARMANDO WALTER 08/25/20 03:26 Consult to Physician [CONS] Routine Comment: Consulting Provider: KAYLA CANADA Physician Instructions: Reason For Exam: melena 08/25/20 06:56 Consult to Dietitian/Nutrition [CONS] Routine Physician Instructions: Reason For Exam: Reason for Consult: Poor oral intake Consult to Wound/ET Nurse [CONS] Urgent Reason For Exam: wound eval 08/25/20 11:35 Consult to Physician [CONS] Routine Comment: Consulting Provider: BALJEET KAUR Physician Instructions: Reason For Exam: Sepsis 08/25/20 14:59 Consult to Physician [CONS] Routine Comment: Consulting Provider: SYLWIA WOODALL Physician Instructions: Please see patient Reason For Exam: evaluation of hidradenitis 08/27/20 10:20 Physical Therapy Evaluation and Treat [CONS] Routine Comment: Reason For Exam: Evaluate and treat Primary care physician: [employer]ER Hospitalization Condition: Critical Hospital course: 40-year-old male with known history of hypertension, history of diabetes mellitus, colon cancer with colon resection in the past, PUD presenting in the emergency room today complaining of shortness of breath and fatigue which has been ongoing for about 2 to 3 weeks. He has also had some dark stool and indicates that he has had anemia from time to time. Denies any fever or chills, no chest pain or shortness of breath, no fever or chills, no nausea vomiting and no diarrhea. He however has been having generalized body aches and pain. Patient denies any sick contacts and no recent travel. Denies any contact with anyone with COVID-19. Upon arrival in the emergency room he was tachycardic. Evaluation in the emergency room today reveals a leukocytosis of 18., Chest x-ray was unremarkable. Patient is being admitted with sepsis and anemia. He was started on antibiotics (clindamycin). ID was consulted. 08/25 Patient seen and examined at bedside this morning On IV antibiotics for suppurative hidradenitis. ID on board GI consulted for possible colonoscopy - as per GI no colonoscopy is indicated at this time. 08/26 He apparently does not have [employer] insurance anymore Remains on antibiotics. Continue on clindamycin as per ID. WBC trending down He will need to have surgical management as outpatient as per general surgery Vitals stable. 08/27 On antibiotics ID following. WBC tredning down. Plan to DC on clindamycin for 3 weeks as per ID. Discussed with surgery - will need to have a follow up in the office. Debridement will be as outpatient 08/28 He is working to get insurance. He will continue antibiotics as prescribed and follow up with surgery in the office He also needs to follow up with GI for his colon cancer history. Disposition: DC-01 TO HOME OR SELFCARE Time spent for discharge: 45 mins - Discharge Diagnoses (1) Anemia Status: Acute Qualifiers: Anemia type: unspecified type Qualified Code(s): D64.9 - Anemia, unspecified (2) Cellulitis of axilla Status: Acute Qualifiers: Laterality: unspecified laterality Qualified Code(s): L03.119 - Cellulitis of unspecified part of limb (3) Elevated WBC count Status: Acute Qualifiers: Leukocytosis type: unspecified Qualified Code(s): D72.829 - Elevated white blood cell count, unspecified (4) Hidradenitis suppurativa Status: Acute (5) Sepsis Status: Acute Qualifiers: Sepsis type: sepsis due to unspecified organism Sepsis acute organ dysfunction status: without acute organ dysfunction Qualified Code(s): A41.9 - Sepsis, unspecified organism Core Measure Documentation - Palliative Care Palliative Care/ Comfort Measures: Not Applicable - Core Measures Any of the following diagnoses?: none Exam - Physical Exam Narrative exam: VITAL SIGNS: Reviewed. GENERAL: Awake HEAD: No signs of head trauma. EYES: Pupils are equal. Extraocular motions intact. MOUTH: Oropharynx is normal. NECK: No adenopathy, no JVD. CHEST: Chest with diminished breath sounds bilaterally. No wheezes, rales, or rhonchi. CARDIAC: normal S1 and S2, without murmurs, gallops, or rubs. ABDOMEN: Soft, non tender and non distended. No rebound or guarding, and no masses palpated. Bowel Sounds normal. MUSCULOSKELETAL: Multiple hidradenitis suppurativa with discharge in bilateral axilla (dressing intact ) Genitourinary: Hidradenitis of the groin area (dressing intact) NEUROLOGIC EXAM: Alert and oriented x3. No focal neurologic deficits SKIN: No obvious lesions - Constitutional Vitals: Temp Pulse Resp BP Pulse Ox 99.4 F 88 20 102/62 95 08/28/20 04:22 08/28/20 05:00 08/28/20 04:22 08/28/20 04:22 08/28/20 04:22 Plan Diet: low cholesterol, low salt, diabetic Additional Instructions: Continue antibiotics (clindamycin 450 mg every 8 hours for 3 weeks). Take probiotics for 4 weeks. Follow up with surgery in the office for debridement in 1 -2 weeks. Follow up with a gastroenterology in the office in 1 -2 weeks Follow up with: PRIMARY CAREMD [Primary Care Provider] - 3-5 Days SYLWIA WOODALL MD [Staff Physician] - 7 Days Prescriptions: Glimepiride [Amaryl] 1 mg PO QDDIAB #30 tablet amLODIPine 2.5 mg PO QDAY #30 tablet Clindamycin [Clindamycin CAP] 150 mg PO Q8HR #63 capsule Clindamycin [Clindamycin CAP] 300 mg PO Q8H #63 cap carvediloL [Coreg] 6.25 mg PO BID #30 tablet Lactobacillus Rhamnosus GG [Culturelle] 1 each PO BID #90 capsule Ferrous Sulfate [Feosol 325 MG tab] 325 mg PO BID #60 tablet oxyCODONE /ACETAMINOPHEN [Percocet 5/325 mg] 1 tab PO Q6HR PRN 2 Days #8 tablet PRN Reason: Pain Pantoprazole [Protonix TAB] 40 mg PO BID #60 tablet
[2020-08-28] MEDS: FERROUS SULFATE 325 MG TAB PO SCH (09:02)
[2020-08-28] MEDS: LACTOBACILLUS RHAMNOSUS GG 1 EACH CAP PO SCH (09:02)
[2020-08-28] MEDS: amLODIPine 5 MG TAB PO SCH (09:02)
[2020-08-28 09:31] VITALS: BP 115/70
[2020-08-28 09:57] LABS: Albumin 1.5 g/dL (3.9-5); Blood Urea Nitrogen 6 mg/dL (9-20); Calcium 7.6 mg/dL (8.4-10.2); Hemolysis Index 0
[2020-08-28 10:04] LABS: Alanine Aminotransferase < 5 units/L (7-56); BUN/Creatinine Ratio 9
[2020-08-28] MEDS ORDERED: BACITRACIN ZINC OINT 28.4 GM TP PRN (14:00)
== END 2020-08-28 19:06 | disposition home or self-care (01) | DRG 872 ==
LOC: ED 00:09 → 4A 03:44 → OBSVTOIN 11:30 → 4A 11:30
PROVIDERS: ADMIT Internal Medicine Geriatric Medicine; ATTEND Internal Medicine
PROC: 02HV33Z Insertion of Infusion Device into Superior Vena Cava, Percutaneous Approach (ICD-10-PCS; principal; 2020-08-25)
PROC: 02H633Z Insertion of Infusion Device into Right Atrium, Percutaneous Approach (ICD-10-PCS; 2020-08-25)
DX: A41.9 Sepsis, unspecified organism (principal); L03.119 Cellulitis of unspecified part of limb; I10 Essential (primary) hypertension; E11.9 Type 2 diabetes mellitus without complications; Z20.822 Contact with and (suspected) exposure to COVID-19; D72.829 Elevated white blood cell count, unspecified; D64.9 Anemia, unspecified; L73.2 Hidradenitis suppurativa; Z79.899 Other long term (current) drug therapy; Z79.84 Long term (current) use of oral hypoglycemic drugs; Z88.0 Allergy status to penicillin; Z85.038 Personal history of other malignant neoplasm of large intestine
CPT/HCPCS: 36415; 71045; 71250; 74176; 80048; 80053; 82140; 82728; 82962; 83550; 83880; 84484; 85007; 85025; 85610; 87040; 87076; 87116; 87186; 87641; 93005; 96374; 96375; 96376; G0378; C9113; J0610; J1170; J1642; J2270; J3480; J7030

== ENCOUNTER 2021-01-22 19:48 | Emergency (ER) | payer MEDICARE ==
[2021-01-23] MEDS ORDERED: ONDANSETRON 4 MG/2 ML INJ IM ONE (03:27)
[2021-01-23] MEDS ORDERED: fentaNYL 100 MCG/2 ML INJ IM ONE (03:27)
--- NOTE | 2021-01-23 03:31 | Emergency Department Report ---
HPI - General Chief Complaint: Weakness Time Seen by Provider: 01/23/21 03:10 - HPI HPI: Room 25 Patient is a 40-year-old male present with a chief complaint of chronic pain. Patient states she has pain all over since yesterday. Patient states this is been an ongoing issue as a reason on he uses marijuana. Patient denies history of fever. Patient has nausea but denies vomiting. Patient has dysuria for the past week. Patient states he is not sexually active. Patient currently gives his pain a score of 9/10 ED Past Medical Hx - Past Medical History Hx Hypertension: Yes Hx Diabetes: Yes Hx GERD: Yes Additional medical history: PUD, Colon cancer, Hidradenitis suppurativa - Surgical History Past Surgical History?: Yes Additional Surgical History: Colon resection - Family History Family history: no significant - Social History Smoking Status: Never Smoker Substance Use Type: Marijuana - Medications Home Medications: Home Medications Medication Instructions Recorded Confirmed Last Taken Type Sucralfate [Carafate] 1 gm PO Q6HR #60 oral.liqd 05/04/15 08/27/20 08/27/20 13:37 Rx Clindamycin [Clindamycin CAP] 150 mg PO Q8HR #63 capsule 08/28/20 Unknown Rx Clindamycin [Clindamycin CAP] 300 mg PO Q8H #63 cap 08/28/20 Unknown Rx Ferrous Sulfate [Feosol 325 MG tab] 325 mg PO BID #60 tablet 08/28/20 Unknown Rx Glimepiride [Amaryl] 1 mg PO QDDIAB #30 tablet 08/28/20 Unknown Rx Lactobacillus Rhamnosus GG 1 each PO BID #90 capsule 08/28/20 Unknown Rx [Culturelle] Pantoprazole [Protonix TAB] 40 mg PO BID #60 tablet 08/28/20 Unknown Rx amLODIPine 2.5 mg PO QDAY #30 tablet 08/28/20 Unknown Rx carvediloL [Coreg] 6.25 mg PO BID #30 tablet 08/28/20 Unknown Rx oxyCODONE /ACETAMINOPHEN [Percocet 1 tab PO Q6HR PRN 2 Days #8 tablet 08/28/20 Unknown Rx 5/325 mg] Cyclobenzaprine [Flexeril] 10 mg PO TID PRN #10 tablet 01/23/21 Unknown Rx HYDROcodone/APAP 5-325 [[place] 1 - 2 each PO Q6HR PRN #10 tablet 01/23/21 Unknown Rx 5/325] Sulfamethoxazole/Trimethoprim 1 each PO BID #14 tablet 01/23/21 Unknown Rx [Bactrim DS TAB] ED Review of Systems ROS: Stated complaint: WEAKNESS Other details as noted in HPI Constitutional: denies: fever Eyes: denies: eye pain ENT: denies: throat pain Respiratory: denies: cough, shortness of breath Cardiovascular: denies: chest pain Endocrine: no symptoms reported Gastrointestinal: nausea. denies: vomiting Genitourinary: dysuria. denies: hematuria Musculoskeletal: back pain, myalgia Neurological: denies: headache Physical Exam - Physical Exam Vital Signs: Vital Signs 01/22/21 21:52 Temperature 98.0 F Pulse Rate 98 H Respiratory 18 Rate Blood Pressure 107/74 O2 Sat by Pulse 98 Oximetry Physical Exam: GENERAL: The patient is well-developed well-nourished male lying on stretcher not appearing to be in acute distress. [] HEENT: Normocephalic. Atraumatic. Extraocular motions are intact. Patient has moist mucous membranes. NECK: Supple. Trachea midline CHEST/LUNGS: Clear to auscultation. There is no respiratory distress noted. HEART/CARDIOVASCULAR: Regular. There is no tachycardia. There is no gallop rub or murmur. ABDOMEN: Abdomen is soft, nontender. Patient has normal bowel sounds. There is no abdominal distention. SKIN: Hidradenitis. There is no diaphoresis. NEURO: The patient is awake, alert, and oriented. The patient is cooperative. The patient has no focal neurologic deficits. The patient has normal speech. GCS 15 MUSCULOSKELETAL: There is no evidence of acute injury. ED Course Vital Signs 01/22/21 21:52 Temperature 98.0 F Pulse Rate 98 H Respiratory 18 Rate Blood Pressure 107/74 O2 Sat by Pulse 98 Oximetry ED Medical Decision Making - Lab Data Result diagrams: 01/23/21 03:25 01/23/21 03:25 Corrected calcium 7.79 - Differential Diagnosis Chronic pain, DKA, dehydration, UTI Critical care attestation.: If time is entered above; I have spent that time in minutes in the direct care of this critically ill patient, excluding procedure time. ED Disposition Clinical Impression: Urinary tract infection, Chronic pain Disposition: DC-01 TO HOME OR SELFCARE Is pt being admited?: No Does the pt Need Aspirin: No Condition: Stable Instructions: Urinary Tract Infection, Adult Additional Instructions: Return to the emergency department should you develop worsening symptoms, inability to tolerate food or liquids, high fever or any other concerns Prescriptions: Sulfamethoxazole/Trimethoprim [Bactrim DS TAB] 1 each PO BID #14 tablet Cyclobenzaprine [Flexeril] 10 mg PO TID PRN #10 tablet PRN Reason: Muscle Spasm HYDROcodone/APAP 5-325 [[place] 5/325] 1 - 2 each PO Q6HR PRN #10 tablet PRN Reason: Pain Referrals: PRIMARY CARE, [Primary Care Provider] - 3-5 Days
[2021-01-23 03:57] LABS: Basophils # (Auto) 0.1 K/mm3 (0.0-0.1); Basophils % (Auto) 0.4 % (0.0-1.8); Eosinophils % (Auto) 0.1 % (0.0-4.3); Hematocrit 29.3 % (35.5-45.6); Hemoglobin 9.3 gm/dl (11.8-15.2); Lymphocytes # (Auto) 2.5 K/mm3 (1.2-5.4); Lymphocytes % (Auto) 17.1 % (13.4-35.0); Mean Corpuscular HGB Conc 32 % (32-34); Mean Corpuscular Volume 71 fl (84-94); Monocytes # (Auto) 0.8 K/mm3 (0.0-0.8); Monocytes % (Auto) 5.4 % (0.0-7.3); Platelet Count 494 K/mm3 (140-440); Red Blood Count 4.11 M/mm3 (3.65-5.03); Red Cell Distribution Width 19.1 % (13.2-15.2)
[2021-01-23 04:42] LABS: Free T4 (Free Thyroxine) 1.14 ng/dL (0.76-1.46)
[2021-01-23 04:59] LABS: Blood Urea Nitrogen 5 mg/dL (9-20)
[2021-01-23 05:03] LABS: Bacteria,Urine 2+ /HPF (Negative); Bilirubin,Urine NEG (Negative); Blood,Urine NEG (Negative); Color,Urine Amber (Yellow); Mucus,Urine FEW /HPF; Urobilinogen,Urine < 2.0 mg/dL (<2.0)
[2021-01-23 05:09] LABS: Creatine Kinase MB < 1.0 ng/mL (0.0-4.0)
[2021-01-23 05:24] LABS: Albumin 0.9 g/dL (3.9-5)
[2021-01-23 05:28] LABS: Bilirubin,Direct < 0.2 mg/dL (0-0.2)
[2021-01-23 05:29] LABS: Alanine Aminotransferase < 5 units/L (7-56)
[2021-01-23 05:43] LABS: Hemolysis Index 0
[2021-01-23] MEDS ORDERED: CALCIUM CITRATE/VITAMIN D3 315 MG/250 UNITS TAB PO ONE ×2 (05:46→06:40)
[2021-01-23 05:54] LABS: BUN/Creatinine Ratio 10
[2021-01-23 06:26] VITALS: BP 110/80
== END 2021-01-23 11:45 | disposition home or self-care (01) ==
LOC: ED 19:48
DX: N39.0 Urinary tract infection, site not specified (principal); M79.18 Myalgia, other site; G89.29 Other chronic pain; I10 Essential (primary) hypertension; E11.9 Type 2 diabetes mellitus without complications; K21.9 Gastro-esophageal reflux disease without esophagitis; F12.10 Cannabis abuse, uncomplicated; Z87.11 Personal history of peptic ulcer disease; Z85.038 Personal history of other malignant neoplasm of large intestine
CPT/HCPCS: 36415; 80048; 80076; 81001; 82550; 82553; 82805; 83735; 84439; 84443; 84484; 85025; 87086; 96372; 99283; J2405; J3010; 80320; G0480